=== PATIENT | female | born 1945 | race Caucasian/White ===

== ENCOUNTER 2017-05-31 08:09 | Day surgery (SDC) | payer MEDICARE ==
[2017-05-30 09:29] VITALS: BMI 19.1
[~2017-05-31 08:09] MED LIST: LACTATED RINGERS 1,000 ML IV SCH; LIDOCAINE 1% 20 ML VIAL (10MG/ML) FOR IV START INTRADERMA PRN
[2017-05-31 08:36] VITALS: TEMP 97
[2017-05-31] MEDS ORDERED: PROPOFOL 10 MG/ML 20 ML VIAL IV ONE (09:17)
[2017-05-31] MEDS ORDERED: LIDOCAINE 1% INJ 10MG/ML (20 ML MDV) ONE (09:17)
--- NOTE | 2017-05-31 09:40 | P.PCN ---
Date of Procedure: 05/31/17 Procedure(s) Performed: Brief history: Patient is a pleasant 72-year-old white female, scheduled for an elective upper endoscopy as well as colonoscopy as a part of evaluation of upper abdominal pain with abdominal bloating for the last few months duration. She also has family history of colon cancer diagnosed in her mother in her 60s. Her last colonoscopy was 5 years ago. Procedure performed: Esophagogastroduodenoscopy with biopsy Colonoscopy Preoperative diagnosis: Epigastric pain and abdominal bloating Screening for colon cancer/family history of colon cancer Anesthesia: MAC Procedure: After informed consent was obtained from the patient was brought into the endoscopy unit and IV sedation was administered by anesthesia under continuous monitoring. Initially upper endoscopy was done. The Olympus GF 160 video endoscope was inserted inserted into the mouth and esophagus intubated without any difficulty and was gradually advanced into the stomach and duodenum and carefully examined. The bulb and second part of the duodenum appeared normal. The scope was then withdrawn into the stomach adequately insufflated with air and upon careful examination the antrum had mild gastritis and biopsies were done from this area. The body, cardia and fundus appeared normal. The scope was then withdrawn into the esophagus. The GE junction was located at 40 cm to the incisors. It appeared regular with no erythema erosions or ulcerations. Rest of the esophagus appeared normal. Patient tolerated the procedure well. At this time the patient continued to remain sedation. Initial digital rectal examination was normal. Olympus CF 160 video colonoscope was then inserted into the rectum and gradually advanced to the cecum without any difficulty. Careful examination was performed as the scope was gradually being withdrawn. The prep was excellent. The cecum, ascending colon, transverse colon, descending colon, sigmoid colon and rectum appeared normal. Retroflexion was performed in the rectum and no lesions were noted. Patient tolerated the procedure well. Impression: 1. Upper endoscopy revealed mild antral gastritis but no evidence of esophagitis or peptic ulcer disease 2. Colonoscopy was within normal limits with no evidence of colitis or colorectal neoplasia. Recommendations: Findings of this examination were discussed with the patient as well as her family. She was advised to follow with the biopsy results. She can have a repeat screening colonoscopy in 5 years because of the family history of colon cancer.
[2017-05-31 09:46] VITALS: RESP 16
[2017-05-31 10:11] VITALS: BP 119/74; PULSE 59
== END 2017-05-31 10:20 | disposition home or self-care (01) ==
LOC: ORWHC2ENDO 08:09
PROVIDERS: ATTEND Internal Medicine Gastroenterology
DX: Z12.11 Encounter for screening for malignant neoplasm of colon (principal); K29.50 Unspecified chronic gastritis without bleeding; Z80.0 Family history of malignant neoplasm of digestive organs; E78.5 Hyperlipidemia, unspecified; E07.9 Disorder of thyroid, unspecified; K21.9 Gastro-esophageal reflux disease without esophagitis; Z79.82 Long term (current) use of aspirin; Z79.891 Long term (current) use of opiate analgesic; Z79.899 Other long term (current) drug therapy
CPT/HCPCS: 88305; 88342; 43239; J2001; J2704; G0105

== ENCOUNTER → 2017-09-05 | Outpatient (CLI) | payer MEDICARE ==
--- NOTE | 2017-09-05 15:12 | BD ---
EXAMINATION TYPE: MG DEXA axial skeleton. DATE OF EXAM: 09/05/2017 CLINICAL HISTORY: M89.9 Height: 66.5 Weight: 120.5 FRAX RISK QUESTIONS: Alcohol (3 or more units per day): no Family History (Parent hip fracture): yes, mother Glucocorticoids (More than 3mos): no (Ex: prednisone, prednisolone, methylprednisolone, dexamethasone, and hydrocortisone). History of Fracture in Adulthood: yes; both ankles different times Secondary Osteoporosis: 1. Type 1 Diabetes: no 2. Hyperthyroidism: no 3. Menopause before 45: yes, hysterectomy between age 40-45 4. Malnutrition: no 5. Chronic liver disease: no Rheumatoid Arthritis: no Current Tobacco Use: no RISK FACTORS HISTORY OF: Family History of Osteoporosis: yes Active: yes Diet low in dairy products/other sources of calcium: no Postmenopausal woman: yes Take estrogen and/or progesterone medications: Premarin cream now How long: previous use of hormones about 20 years Lost more than 2 inches in height since high school: no Frequent falls: no Poor Health: no Hyperparathyroidism: no Adrenal Insufficiency: no MEDICATIONS: Prednisone or other steroids: no Thyroid Medications: yes Which medication: Levothyroxine How Long: over 10 years at least Osteoporosis Medications: not now Which medication: Fosamax How Long: tried once-discontinued Additional Medications: propranolol for migraines, Fioricet, simvastatin, aspirin Fluticasone propionate nasal spray, Restasis, omeprazole, vitamin D vitamin b12, vitamin CoQ-10 Additional History: partial thyroidectomy 2000 EXAM MEASUREMENTS: Bone mineral densitometry was performed using the VB Rags System. Bone mineral density as measured about the Lumbar spine is: ----- L1-L4(G/cm2): 0.971 T Score Values are as follows: ----- L2: -2.4 ----- L3: -1.4 ----- L4: -1.3 ----- L1-L4: -1.7 Bone mineral density not previously done at this facility; history of BMD elsewhere Bone mineral density about the R hip (g/cm2): 0.774 Bone mineral density about the L hip (g/cm2): 0.793 T Score values are as follows: -----R Neck: -1.9 -----L Neck: -1.8 -----R Total: -2.1 -----L Total: -2.0 Bone mineral density not previously done at this facility; history of BMD elsewhere IMPRESSION: Osteopenia (T Score between -2.5 and -1). There is slightly increased risk of fracture and the patient may be considered for treatment. Re-Screen 2-5 years. NOTE: T-SCORE=SD OF THE YOUNG ADULT MEAN.
== END | disposition home or self-care (01) ==
LOC: RADBDWWP 13:04
PROVIDERS: ATTEND Family Medicine
DX: M85.80 Other specified disorders of bone density and structure, unspecified site (principal)
CPT/HCPCS: 77080

== ENCOUNTER → 2017-11-03 | Outpatient (CLI) | payer MEDICARE ==
[2017-11-03 07:30] LABS: Basophils % (A) 1 %; Eosinophils # (A) 0.2 k/uL (0-0.7); Eosinophils % (A) 3 %; HCT 41.8 % (34.0-46.0); HGB 14.6 gm/dL (11.4-16.0); Lymphocytes % (A) 20 %; MCH 31.1 pg (25.0-35.0); MCHC 34.9 g/dL (31.0-37.0); Mean Platelet Volume 8.9; Monocytes # (A) 0.3 k/uL (0-1.0); Monocytes % (A) 6 %; Neutrophils # (A) 3.6 k/uL (1.3-7.7); Neutrophils % (A) 69 %; Platelet Count 162 k/uL (150-450); RDW 13.3 % (11.5-15.5); WBC 5.2 k/uL (3.8-10.6)
[2017-11-03 07:55] LABS: ALT 25 U/L (9-52); AST 22 U/L (14-36); Albumin 4.3 g/dL (3.5-5.0); Alkaline Phosphatase 70 U/L (38-126); Anion Gap 12 mmol/L; Blood Urea Nitrogen 21 mg/dL (7-17); Calcium 9.1 mg/dL (8.4-10.2); Carbon Dioxide 28 mmol/L (22-30); Chloride 105 mmol/L (98-107); Cholesterol 146 mg/dL (<200); Glucose 90 mg/dL (74-99); HDL Cholesterol 66 mg/dL (40-60); LDL Cholesterol,Calculated 66 mg/dL (0-99); Potassium 4.2 mmol/L (3.5-5.1); Sodium 145 mmol/L (137-145); Total Protein 6.7 g/dL (6.3-8.2); Triglycerides 72 mg/dL (<150); Uric Acid 3.8 mg/dL (3.7-7.4)
[2017-11-03 08:07] LABS: T4, Free (Free Thyroxine) 1.33 ng/dL (0.78-2.19)
[2017-11-03 12:00] LABS: Vitamin D 25 Hydroxy 47.8 ng/mL (30.0-100.0)
[2017-11-03 16:44] LABS: Hemoglobin A1C 4.6 % (4.0-6.0)
== END | disposition home or self-care (01) ==
LOC: LABWHC1 07:14
PROVIDERS: ATTEND Family Medicine
DX: E78.5 Hyperlipidemia, unspecified (principal); E03.9 Hypothyroidism, unspecified; M35.09 Sjogren syndrome with other organ involvement; R73.01 Impaired fasting glucose
CPT/HCPCS: 36415; 80053; 80061; 82306; 82607; 83036; 84439; 84443; 84550; 85025

== ENCOUNTER → 2017-11-13 | Outpatient (CLI) | payer MEDICARE ==
--- NOTE | 2017-11-13 10:12 | US ---
EXAMINATION TYPE: US kidneys/renal and bladder DATE OF EXAM: 11/13/2017 COMPARISON: NONE CLINICAL HISTORY: Microscopic hematuria R31.29. Hematuria x 1 week with burning pain left side, then passed small stone per patient. EXAM MEASUREMENTS: Right Kidney: 10.2 x 5.3 x 4.6 cm Left Kidney: 11.1 x 6.4 x 5.3 cm Post Void Residual Volume: 13.6 mL Right Kidney: No hydronephrosis or masses seen Left Kidney: mid pole cyst = 3.6 x 3.7 x 3.0cm and probable smaller adjacent cyst = 2.0 x 1.8 x 1.5cm . No left-sided hydronephrosis. Bladder: wnl Bilateral Jets seen: Yes Normal Post Void Residual: Yes IMPRESSION: 1. No hydronephrosis or nephrolithiasis of either kidney. 2. Left midpole renal cyst and probable adjacent smaller 2.0 cm cyst.
== END | disposition home or self-care (01) ==
LOC: RADUSWWP 09:16
PROVIDERS: ATTEND Family Medicine
DX: N28.1 Cyst of kidney, acquired (principal)
CPT/HCPCS: 76770

== ENCOUNTER → 2019-01-07 | Outpatient (CLI) | payer MEDICARE ==
--- NOTE | 2019-01-08 09:26 | MM ---
Reason for exam: clinical finding. Left breast pain Last mammogram was performed 6 months ago. History: Patient is postmenopausal and history of other cancer. Took estrogen for 10 years beginning at age 43. Physical Findings: Nurse did not find any significant physical abnormalities on exam. MG 3D Diag Mammo W/Cad LT CC and MLO view(s) were taken of the left breast. Prior study comparison: July 10, 2018, bilateral MG screening mammo w CAD. No significant new finding when compared to prior study. ASSESSMENT: Benign, BI-RAD 2 RECOMMENDATION: Clinical management of the left breast.
--- NOTE | 2019-01-08 09:29 | USB ---
History: Patient is postmenopausal and history of other cancer. Took estrogen for 10 years beginning at age 43. US Breast LT Left complete breast ultrasound includes all four quadrants, the retroareolar region and axilla. Finding demonstrates dense tissue noted upper outer quadrant. ASSESSMENT: Benign, BI-RAD 2 RECOMMENDATION: Clinical management of the left breast. Routine screening mammogram of both breasts in 1 year.
== END | disposition home or self-care (01) ==
LOC: RADMAMWWP 09:08
PROVIDERS: ATTEND Family Medicine
DX: N64.4 Mastodynia (principal)
CPT/HCPCS: 77065; 76641; G0279; 77061

== ENCOUNTER 2019-01-14 06:15 | Day surgery (SDC) | payer MEDICARE ==
[2019-01-10 08:58] VITALS: BMI 19.3
[2019-01-14] MEDS ORDERED: ALPRAZolam 0.25 MG TAB PO PRN (06:31)
[2019-01-14] MEDS ORDERED: ATORVASTATIN 80 MG TAB PO STA (06:31)
[2019-01-14] MEDS ORDERED: NITROGLYCERIN SL TABS 0.4 MG TAB SUBLINGUAL PRN (06:31)
[2019-01-14] MEDS ORDERED: ALPRAZolam 0.5 MG TAB PO PRN (06:31)
[2019-01-14] MEDS ORDERED: SODIUM CHLORIDE 0.9% 1,000 ML in EMPTY BAG 1 BAG IV ONE (06:31)
[2019-01-14] MEDS ORDERED: ASPIRIN 325 MG TAB PO STA (06:31)
[2019-01-14] MEDS ORDERED: VERAPAMIL 2.5 MG/ML 2 ML AMP ONE (07:13)
[2019-01-14] MEDS ORDERED: LIDOCAINE 1% INJ 10MG/ML (20 ML MDV) ONE (07:13)
[2019-01-14 07:14] VITALS: TEMP 97.6
[2019-01-14 07:33] LABS: Basophils % (A) 1 %; Eosinophils # (A) 0.2 k/uL (0-0.7); Eosinophils % (A) 3 %; HCT 41.9 % (34.0-46.0); HGB 14.1 gm/dL (11.4-16.0); Lymphocytes # (A) 1.1 k/uL (1.0-4.8); Lymphocytes % (A) 22 %; MCH 29.7 pg (25.0-35.0); MCHC 33.7 g/dL (31.0-37.0); MCV 88.2 fL (80.0-100.0); Mean Platelet Volume 8.3; Monocytes # (A) 0.3 k/uL (0-1.0); Monocytes % (A) 6 %; Neutrophils # (A) 3.2 k/uL (1.3-7.7); Neutrophils % (A) 66 %; Platelet Count 167 k/uL (150-450); RBC 4.75 m/uL (3.80-5.40); RDW 13.1 % (11.5-15.5); WBC 4.9 k/uL (3.8-10.6)
[2019-01-14 07:42] LABS: African American GFR (CKD) >90 (>60 ml/min/1.73 sqM); Anion Gap 8 mmol/L; Blood Urea Nitrogen 14 mg/dL (7-17); Calcium 9.4 mg/dL (8.4-10.2); Carbon Dioxide 25 mmol/L (22-30); Chloride 107 mmol/L (98-107); Glucose 82 mg/dL (74-99); Potassium 4.2 mmol/L (3.5-5.1); Sodium 140 mmol/L (137-145)
[2019-01-14] MEDS ORDERED: MIDAZOLAM (PF) 2 MG/2 ML VIAL IV ONE (07:54)
[2019-01-14] MEDS ORDERED: LIDOCAINE 1% INJ 10MG/ML (10 ML MDV) SQ ONE (08:02)
[2019-01-14] MEDS ORDERED: HEPARIN SODIUM 1,000 UN/ML (10ML VL) ONE (08:03)
[2019-01-14] MEDS: VERAPAMIL SYRINGE (5 MG/10 ML) INTRAARTER ONE ×2 (08:03→08:13)
[2019-01-14] MEDS ORDERED: HEPARIN SODIUM 1,000 UN/ML (10ML VL) IV ONE (08:05)
[2019-01-14] MEDS ORDERED: IOPAMIDOL-370 125ML BTL INJ ONE (08:12)
[2019-01-14] MEDS ORDERED: RX INFO: IV CONTRAST WAS GIVEN 1 EACH MISC MISCELLANE PRN (08:22)
[2019-01-14] MEDS ORDERED: SODIUM CHLORIDE 0.9% 1,000 ML IV SCH (08:30)
[2019-01-14 08:37] VITALS: RESP 16
--- NOTE | 2019-01-14 08:42 | LTR ---
January 14, 2019 Re: Veronique Getz Dear Dr. Espinoza: Ms. Veronique Flores underwent today a heart catheterization and that revealed normal coronaries. I want to thank you for allowing me to participate in her care and please do not hesitate to call if you have any question or concern. Sincerely, MD PATRICIO Rae / LETTY: [phone] /
--- NOTE | 2019-01-14 08:51 | CC ---
CARDIAC CATHETERIZATION REPORT DATE OF SERVICE: January 14, 2019 PERFORMING PHYSICIAN: Prince Barney MD, marble worker. PROCEDURE PERFORMED: 1. Selective right and left coronary angiogram. 2. Left heart catheterization. INDICATION: This is a 73-year-old female patient with hypertension and dyslipidemia, was experiencing chest discomfort. The discomfort was suggestive of severe underlying coronary artery disease. Because of that, a heart catheterization was advised. APPROACH: Right radial artery. COMPLICATION: None. LEVEL OF SEDATION: Moderate with sedation length of 14 minutes. PROCEDURE DESCRIPTION: After obtaining an informed consent, the patient was brought to the cardiac tailings dam laborer. The right radial artery was cannulated using micropuncture technique, the micropuncture wire passed easily then I placed a 5-Uzbek sheath in the right radial artery. After that I did give the patient 2 mg of verapamil IA and 5000 units of heparin IV. Selective right and left coronary angiogram performed using JR3.5 and JL3 catheters. Left heart catheterization was performed using the JL3, which crossed the aortic valve then after pullback across the aortic valve. The procedure was completed without any complication. SELECTIVE CORONARY ANGIOGRAM: 1. The right coronary artery is a large caliber vessel. It is a dominant vessel and it appears to be angiographically normal. It distally bifurcates into PDA and PLV branches. They appear to be angiographically normal. 2. The left main is angiographically normal. It bifurcates into left circumflex and left anterior descending artery. 3. The left circumflex is a large caliber vessel. It is a nondominant vessel and appeared to be angiographically normal. 4. The LAD: The LAD appeared to be angiographically normal. It gives rise into the first and second diagonal branches. Both appeared to have mild disease in the ostium. The LAD itself and the proximal, mid and distal portion appeared to be angiographically normal. HEMODYNAMICS: The left ventricular end-diastolic pressure was 10 mmHg without significant gradient across the aortic valve. CONCLUSION: 1. Normal coronary angiogram. 2. Normal left ventricular end-diastolic pressure. POSTPROCEDURE MANAGEMENT: 1. Medical treatment. 2. Follow up with the patient. PATRICIO / LUIS MANUELN: [id number] /
[2019-01-14 12:49] VITALS: BP 111/62; PULSE 66
== END 2019-01-14 12:52 | disposition home or self-care (01) ==
LOC: CATHCVL 06:15
PROVIDERS: ATTEND Internal Medicine Interventional Cardiology
DX: R07.89 Other chest pain (principal); R94.39 Abnormal result of other cardiovascular function study; I10 Essential (primary) hypertension; E78.5 Hyperlipidemia, unspecified; Z82.49 Family history of ischemic heart disease and other diseases of the circulatory system; Z72.0 Tobacco use; Z79.82 Long term (current) use of aspirin; Z79.890 Hormone replacement therapy; Z88.5 Allergy status to narcotic agent
CPT/HCPCS: 93458; 80048; 85025; C1769 ×2; C1894; J1644; J2001; Q9967; J2250

== ENCOUNTER → 2019-02-12 | Outpatient (CLI) | payer MEDICARE ==
--- NOTE | 2019-02-12 14:58 | CT ---
EXAMINATION TYPE: CT chest w con DATE OF EXAM: 02/12/2019 COMPARISON: None HISTORY: 73-year-old female Left side chest pain x1 year TECHNIQUE: Contiguous axial scanning of the chest after the administration of 100 mL of Isovue 300. Coronal/sagittal reconstructions performed. CT DLP: 306mGycm. Automatic exposure control utilized for a dose reduction. FINDINGS: Heart normal size without pericardial effusion. Aorta normal caliber with a bovine configuration to the aortic arch. Left hilar nodule measures 1.3 x 0.6 cm, possible lymphoid tissue. Otherwise, no thoracic lymphadenop athy. No consolidation or pleural effusion. Irregular peripheral nodularity and groundglass measures up to 1.5 x 0.7 cm on axial image 45 and 6 m m on axial image 47 within the left lower lobe. Additional irregular and patchy nodularity right lower lobe measures up to 1.3 x 0.7 cm, axial image 33. Suggestion of some tree-in-bud opacities, axial image 45 within the left lower lobe. There may be add itional minimal tree-in-bud opacities basilar right middle lobe and to a lesser extent within the ant erior left midlung, axial image 29. Biapical pleural parenchymal scarring. A few 4 mm and smaller pulmonary nodules right upper lobe, for example, axial image 24 through 27. Visualized upper abdomen shows numerous hypodense hepatic lesions, largest measuring 1.2 cm, likely c ysts. Partially visualized large left renal lesion measuring 5.2 cm compatible with a cyst. Cholecyst ectomy clips. Bones: No osseous destructive process. IMPRESSION: 1. Irregular nodularity in the bilateral lower lobes, largest measuring 1.5 x 0.7 cm on the left and 1.3 x 0.7 cm on the right. Suggestion of subtle scattered tree-in-bud opacities and less than 4 mm no dularity right mid lung. Overall findings suggest an infectious/inflammatory etiology. Correlate for infectious bronchiolitis or atypical infections. 3 month follow-up after treatment recommended to aristides ssess and exclude the possibility of any underlying mass. 2. An additional 1.3 x 0.6 cm left hilar lymph node versus additional pulmonary nodularity should als o be reassessed at follow-up.
== END | disposition home or self-care (01) ==
LOC: RADCTMAIN 10:14
PROVIDERS: ATTEND Family Medicine
DX: R91.1 Solitary pulmonary nodule (principal); R09.1 Pleurisy
CPT/HCPCS: 82565; 84520; 71260; 36415; Q9967

== ENCOUNTER → 2019-04-09 | Outpatient (CLI) | payer MEDICARE | END | disposition home or self-care (01) | LOC: LABWHC1 10:59 | PROVIDERS: ATTEND Internal Medicine | DX: R04.2 Hemoptysis (principal) | CPT/HCPCS: 36415 ==

== ENCOUNTER → 2019-05-13 | Outpatient (CLI) | payer MEDICARE ==
--- NOTE | 2019-05-13 10:04 | CT ---
EXAMINATION TYPE: CT chest w con DATE OF EXAM: 05/13/2019 COMPARISON: 02/12/2019 HISTORY: follow up pulmonary nodule CT DLP: 117.8 mGycm. Automated Exposure Control for Dose Reduction was Utilized. TECHNIQUE: CT scan of the thorax is performed following with IV Contrast, patient injected with 100 mL of Isovue 300. FINDINGS: LUNGS: There is worsening of the nodular opacities in the right lower lobe seen on series 5 image 24 through 31 with the largest nodule on image 28 measuring 1.0 x 1.0 cm. However as described on the pr ior or multifocal tree-in-bud opacities, particularly on the left in the lower lobe on series 5 image 39. The more confluent nodules on the prior in this region have decreased in size. Tree-in-bud opaci ties are also seen in the right lower lobe posteriorly such as on image 35 and nodules of the right u pper lobe on image 24 and 25 are unchanged. Scattered areas of atelectasis are again noted. No new pl eural effusion or pneumothorax. Main tracheobronchial tree is patent. MEDIASTINUM: There are no greater than 1 cm hilar or mediastinal lymph nodes. Elongated left hilar ly mph node again is nonenlarged on image 29. No pericardial effusion is seen. Few coronary artery amie cifications. OTHER: Incidental 1.4 cm left hepatic lobe cyst and other scattered hepatic lesions that are hypoatte nuated but too small to accurately characterize, likely cysts. Large left renal cyst measures at leas t 5.1 cm. The liver displays mild hepatic steatosis. Minimal degenerative disc disease of the spine. IMPRESSION: Worsening right lower lobe nodular opacities although improved left lower lobe tree-in-bu d opacities and other multifocal persistent tree-in-bud opacities. Again morphology favors atypical i nfectious etiology such as mycobacterium avium intracellular, tuberculosis, or fungal etiology such a s aspergillosis although the differential is broad and can include connective tissue disorders such a s Sjogren system or rheumatoid arthritis, noninfectious bronchiolitis, or less likely neoplastic etio logies.
== END | disposition home or self-care (01) ==
LOC: RADCTMAIN 07:08
PROVIDERS: ATTEND Family Medicine
DX: R91.8 Other nonspecific abnormal finding of lung field (principal)
CPT/HCPCS: 82565; 84520; 71260; 36415; Q9967

== ENCOUNTER → 2019-08-19 | Outpatient (CLI) | payer MEDICARE ==
[2019-08-19 11:09] LABS: Basophils % (A) 1 %; Eosinophils # (A) 0.1 k/uL (0-0.7); Eosinophils % (A) 2 %; HGB 14.6 gm/dL (11.4-16.0); Lymphocytes % (A) 23 %; MCH 30.4 pg (25.0-35.0); MCHC 33.9 g/dL (31.0-37.0); MCV 89.7 fL (80.0-100.0); Mean Platelet Volume 10.1; Monocytes # (A) 0.3 k/uL (0-1.0); Monocytes % (A) 6 %; Neutrophils % (A) 67 %; Platelet Count 134 k/uL (150-450); RDW 13.2 % (11.5-15.5); WBC 4.4 k/uL (3.8-10.6)
[2019-08-19 16:19] LABS: African American GFR (CKD) 84.8 (60.0-200.0); Anion Gap 9.1 mmol/L (4.00-12.00); BUN/Creat Ratio 22.5 Ratio (12.00-20.00); Calcium 9.4 mg/dL (8.7-10.3); Carbon Dioxide 25.9 mmol/L (21.6-31.8); Non-African American GFR(CKD) 73.1 (60.0-200.0); Potassium 4.1 mmol/L (3.5-5.5)
[2019-08-19 16:33] LABS: Cyclic Citrull Pep IgG Unit <0.5 U/mL; Cyclic Citrullinated Pep IgG NEGATIVE (NEGATIVE); Scleroderma SC-70 Ab <0.2 AI
[2019-08-20 14:31] LABS: Alt. alternata IgE Class CLASS 0; Alternaria alternata IgE <0.10 kU/L (<0.10); Asperg. fumagatus IgE <0.10 kU/L (<0.10); Asperg. fumagatus IgE Class CLASS 0; Bermuda Grass IgE <0.10 kU/L (<0.10); Birch(Com.Silvr) IgE 0.11 kU/L (<0.10); Birch(Com.Silvr) IgE Class CLASS 0/1; Cat Epith & Dander IgE <0.10 kU/L (<0.10); Cat Epith & Dander IgE Class CLASS 0; Clad herbarum IgE <0.10 kU/L (<0.10); Clad herbarum IgE Class CLASS 0; Cockroach IgE <0.10 kU/L (<0.10); Cottonwood IgE <0.10 kU/L (<0.10); Dermato. Pteronyssinus Class CLASS 0; Dermato. Pteronyssinus IgE <0.10 kU/L (<0.10); Dermato. farinae IgE <0.10 kU/L (<0.10); Dermato. farinae IgE Class CLASS 0; Dog Dander IgE <0.10 kU/L (<0.10); Elm IgE <0.10 kU/L (<0.10); IgE (Allergen) 6.9 IU/mL (<114.0); Maple (Box Elder) IgE <0.10 kU/L (<0.10); Maple (Box Elder) IgE Class CLASS 0; Mountain Cedar IgE <0.10 kU/L (<0.10); Mountain Cedar IgE Class CLASS 0; Mouse Urine IgE Class CLASS 0; Mouse Urine Proteins,IgE <0.10 kU/L (<0.10); Nettle IgE <0.10 kU/L (<0.10); Nettle IgE Class CLASS 0; Oak IgE 0.28 kU/L (<0.10); Penicillium chrysogenum IgE <0.10 kU/L (<0.10); Penicillium chrysogenum IgE Cl CLASS 0; Rough Marshelder IgE <0.10 kU/L (<0.10); Rough Marshelder IgE Class CLASS 0; Timothy Grass IgE <0.10 kU/L (<0.10); Timothy Grass IgE Class CLASS 0; White Ash IgE Class CLASS 0
== END | disposition home or self-care (01) ==
LOC: LABWHC1 09:24
PROVIDERS: ATTEND Family Medicine
DX: M35.09 Sjogren syndrome with other organ involvement (principal); R06.02 Shortness of breath
CPT/HCPCS: 36415; 80048; 82785; 85025; 86001; 86003; 86038; 86200; 86235; 86606; 86609

== ENCOUNTER → 2020-02-28 | Outpatient (CLI) | payer MEDICARE ==
--- NOTE | 2020-03-02 11:59 | MM ---
Reason for exam: screening (asymptomatic). Last mammogram was performed 1 year and 2 months ago. History: Patient is postmenopausal and history of other cancer. Took estrogen for 10 years beginning at age 43. Physical Findings: A clinical breast exam by your physician is recommended on an annual basis and results should be correlated with mammographic findings. MG 3D Screening Mammo W/Cad Bilateral CC, MLO, and XCCL view(s) were taken. Prior study comparison: January 07, 2019, left breast MG 3d diag mammo w/cad LT. July 10, 2018, bilateral MG screening mammo w CAD. The breast tissue is heterogeneously dense. This may lower the sensitivity of mammography. No significant changes when compared with prior studies. ASSESSMENT: Benign, BI-RAD 2 RECOMMENDATION: Routine screening mammogram of both breasts in 1 year.
== END | disposition home or self-care (01) ==
LOC: RADMAMWWP 08:27
PROVIDERS: ATTEND Internal Medicine Geriatric Medicine
DX: Z12.31 Encounter for screening mammogram for malignant neoplasm of breast (principal)
CPT/HCPCS: 77063; 77067

== ENCOUNTER → 2020-12-29 | Outpatient (CLI) | payer MEDICARE ==
[2020-12-29 19:05] LABS: Basophils # (A) 0.03 X 10*3/uL (0.00-0.10); Basophils % (A) 0.6 %; Eosinophils # (A) 0.13 X 10*3/uL (0.04-0.35); Eosinophils % (A) 2.7 %; HCT 42.2 % (37.2-46.3); HGB 14.3 g/dL (12.0-15.0); Lymphocytes # (A) 1.29 X 10*3/uL (0.90-5.00); Lymphocytes % (A) 26.6 %; MCH 30.4 pg (27.0-32.0); MCHC 33.9 g/dL (32.0-37.0); MCV 89.6 fL (80.0-97.0); Mean Platelet Volume 11.8 fL (9.5-12.2); Monocytes # (A) 0.39 X 10*3/uL (0.20-1.00); Neutrophils % (A) 61.9 %; Platelet Count 151 X 10*3/uL (140-440); RBC 4.71 X 10*6/uL (4.10-5.20); RDW 12.5 % (11.5-14.5); WBC 4.85 X 10*3/uL (4.50-10.00)
[2020-12-29 21:53] LABS: Erythrocyte Sedimentation Rate 5 mm/Hr (0-30)
[2020-12-30 02:10] LABS: ALT 13 U/L (8-44); AST 23 U/L (13-35); African American GFR (CKD) 98.9 (60.0-200.0); Albumin/Globulin Ratio 2.04 (1.60-3.17); Alkaline Phosphatase 85 U/L (41-126); BUN/Creat Ratio 28.57 Ratio (12.00-20.00); C Reactive Protein <0.4 mg/dL (0.0-0.8); Calcium 9.2 mg/dL (8.7-10.3); Carbon Dioxide 23.6 mmol/L (21.6-31.8); Chloride 108 mmol/L (96-109); Cholesterol 159 mg/dL (0-200); Globulin 2.3 g/dL (1.6-3.3); Glucose 118 mg/dL (70-110); LDL Cholesterol,Calculated 77.8 mg/dL (0.0-131.0); Non-African American GFR(CKD) 85.4 (60.0-200.0); Potassium 4.1 mmol/L (3.5-5.5); Sodium 142 mmol/L (135-145); Total Bilirubin 1.4 mg/dL (0.3-1.2)
== END | disposition home or self-care (01) ==
LOC: LABWHC1 11:15
PROVIDERS: ATTEND Family Medicine
DX: E03.9 Hypothyroidism, unspecified (principal); A31.0 Pulmonary mycobacterial infection; E78.5 Hyperlipidemia, unspecified; E55.9 Vitamin D deficiency, unspecified; E53.8 Deficiency of other specified B group vitamins
CPT/HCPCS: 36415; 80053; 80061; 82306; 82607; 83970; 84145; 84439; 84443; 85025; 85652; 86140

== ENCOUNTER → 2021-03-23 | Outpatient (CLI) | payer MEDICARE ==
--- NOTE | 2021-03-24 09:14 | MM ---
Reason for exam: additional evaluation requested from prior study. Last mammogram was performed 1 year and 1 month ago. History: Patient is postmenopausal and history of other cancer. Took estrogen for 10 years beginning at age 43. Physical Findings: Nurse did not find any significant physical abnormalities on exam. MG 3D Diag Mammo W/Cad RENATA Bilateral CC, MLO, and XCCL view(s) were taken. Prior study comparison: February 28, 2020, bilateral MG 3d screening mammo w/cad. January 07, 2019, left breast MG 3d diag mammo w/cad LT. The breast tissue is heterogeneously dense. This may lower the sensitivity of mammography. There are benign appearing round calcifications bilaterally. There is no discrete abnormality. These results were verbally communicated with the patient and result sheet given to the patient on 03/23/21. ASSESSMENT: Benign, BI-RAD 2 RECOMMENDATION: Routine screening mammogram of both breasts in 1 year.
== END | disposition home or self-care (01) ==
LOC: RADMAMWWP 13:28
PROVIDERS: ATTEND Family Medicine
DX: R92.1 Mammographic calcification found on diagnostic imaging of breast (principal); Z78.0 Asymptomatic menopausal state
CPT/HCPCS: 77066; G0279; 77062

== ENCOUNTER → 2021-06-08 | Outpatient (CLI) | payer MEDICARE ==
[2021-06-08 18:46] LABS: Basophils # (A) 0.03 X 10*3/uL (0.00-0.10); Basophils % (A) 0.5 %; Eosinophils # (A) 0.15 X 10*3/uL (0.04-0.35); Eosinophils % (A) 2.7 %; HCT 42.4 % (37.2-46.3); HGB 14.1 g/dL (12.0-15.0); Lymphocytes # (A) 1.07 X 10*3/uL (0.90-5.00); Lymphocytes % (A) 19.2 %; MCH 29.9 pg (27.0-32.0); MCHC 33.3 g/dL (32.0-37.0); Mean Platelet Volume 11.2 fL (9.5-12.2); Monocytes % (A) 7.2 %; Neutrophils # (A) 3.91 X 10*3/uL (1.80-7.70); Neutrophils % (A) 70.2 %; Platelet Count 136 X 10*3/uL (140-440); RBC 4.71 X 10*6/uL (4.10-5.20); RDW 13.1 % (11.5-14.5); WBC 5.57 X 10*3/uL (4.50-10.00)
[2021-06-08 19:34] LABS: ALT 17 U/L (8-44); AST 26 U/L (13-35); African American GFR (CKD) 98.2 (60.0-200.0); Albumin 4.8 g/dL (3.8-4.9); Albumin/Globulin Ratio 2.29 (1.60-3.17); Alkaline Phosphatase 94 U/L (41-126); Blood Urea Nitrogen 16.1 mg/dL (9.0-27.0); Calcium 9.5 mg/dL (8.7-10.3); Carbon Dioxide 23.8 mmol/L (20.0-27.5); Chloride 106 mmol/L (96-109); Globulin 2.1 g/dL (1.6-3.3); Glucose 84 mg/dL (70-110); Non-African American GFR(CKD) 84.8 (60.0-200.0); Potassium 4.3 mmol/L (3.5-5.5); Sodium 142 mmol/L (135-145); Total Protein 6.9 g/dL (6.2-8.2)
[2021-06-08 19:49] LABS: Chol/HDL Ratio 2.51 Ratio
[2021-06-08 20:08] LABS: C Reactive Protein <0.30 mg/dL (0.00-0.80)
[2021-06-08 20:36] LABS: Erythrocyte Sedimentation Rate 6 mm/Hr (0-30)
== END | disposition home or self-care (01) ==
LOC: LABWHC1 12:22
PROVIDERS: ATTEND Family Medicine
DX: E78.5 Hyperlipidemia, unspecified (principal); E03.9 Hypothyroidism, unspecified; N64.4 Mastodynia; R91.1 Solitary pulmonary nodule; R73.01 Impaired fasting glucose; R78.5 Finding of other psychotropic drug in blood
CPT/HCPCS: 36415; 80053; 80061; 83036; 83721; 84439; 84443; 85025; 85652; 86140

== ENCOUNTER → 2021-06-28 | Outpatient (CLI) | payer MEDICARE ==
[2021-06-28 18:27] LABS: Basophils # (A) 0.02 X 10*3/uL (0.00-0.10); Basophils % (A) 0.4 %; Eosinophils # (A) 0.11 X 10*3/uL (0.04-0.35); Eosinophils % (A) 2.5 %; HCT 47.1 % (37.2-46.3); HGB 15.2 g/dL (12.0-15.0); Lymphocytes # (A) 1.06 X 10*3/uL (0.90-5.00); Lymphocytes % (A) 23.8 %; MCH 29.7 pg (27.0-32.0); MCHC 32.3 g/dL (32.0-37.0); MCV 92.2 fL (80.0-97.0); Mean Platelet Volume 11.3 fL (9.5-12.2); Monocytes # (A) 0.32 X 10*3/uL (0.20-1.00); Monocytes % (A) 7.2 %; Neutrophils # (A) 2.94 X 10*3/uL (1.80-7.70); Neutrophils % (A) 65.9 %; Platelet Count 174 X 10*3/uL (140-440); RBC 5.11 X 10*6/uL (4.10-5.20); RDW 12.9 % (11.5-14.5); WBC 4.46 X 10*3/uL (4.50-10.00)
[2021-06-29 09:49] LABS: Angiotensin-1 Converting Enz. 32 U/L (8-52)
[2021-06-29 13:23] LABS: C-ANCA <1:20 Titer (<1:20)
== END | disposition home or self-care (01) ==
LOC: LABWHC1 11:39
PROVIDERS: ATTEND Family Medicine
DX: J84.9 Interstitial pulmonary disease, unspecified (principal); E03.9 Hypothyroidism, unspecified
CPT/HCPCS: 36415; 82164; 82785; 85025; 86001; 86255; 86606; 86609

== ENCOUNTER 2022-01-18 19:56 | Observation (INO) | payer MEDICARE ==
--- NOTE | 2022-01-18 22:37 | ED ---
URI HPI - General Chief Complaint: Upper Respiratory Infection Stated Complaint: Coughing up Blood Time Seen by Provider: 01/18/22 22:37 Source: patient Mode of arrival: ambulatory Limitations: no limitations - Related Data Home Medications Medication Instructions Recorded Confirmed Aspirin 81 mg PO HS@1800 05/30/17 01/18/22 Atorvastatin [Lipitor] 20 mg PO HS@1800 05/30/17 01/18/22 Butalb/APAP/Caff 50-325-40Mg 1 tab PO Q4H PRN 05/30/17 01/18/22 [Fioricet 50-325-40] Cholecalciferol [Vitamin D3 (25 50 mcg PO DAILY@0630 05/30/17 01/18/22 Mcg = 1000 Iu)] Cyanocobalamin [Vitamin B-12] 500 mcg PO MOTH 05/30/17 01/18/22 Levothyroxine Sodium [Synthroid] 75 mcg PO DAILY@0630 05/30/17 01/18/22 Propranolol [Inderal] 5 mg PO BID@0630,1800 05/30/17 01/18/22 Propylene Glycol/Peg 400/Pf 1 drop BOTH EYES QID PRN 05/30/17 01/18/22 [Systane 0.3-0.4% Eye Drop] Triamcinolone 0.1% Cream [Kenalog 1 applic TOPICAL DAILY PRN 05/30/17 01/18/22 0.1% Cream] Ubidecarenone [Co Q-10] 200 mg PO DAILY@0630 05/30/17 01/18/22 cycloSPORINE [Restasis] 1 drop BOTH EYES BID 05/30/17 01/18/22 Latanoprost/Pf [Latanoprost 0.005% 1 drop BOTH EYES HS@1800 01/11/19 01/18/22 Eye Drop] Nystatin/Triamcin 1 applic TOPICAL BID 01/18/22 01/18/22 [Nystatin-Triamcinolone Cream] Omeprazole 20 mg PO AC-BRKFST PRN 01/18/22 01/18/22 Allergies Allergy/AdvReac Type Severity Reaction Status Date / Time No Known Allergies Allergy Verified 01/18/22 23:27 Review of Systems ROS Statement: Those systems with pertinent positive or pertinent negative responses have been documented in the HPI. ROS Other: All systems not noted in ROS Statement are negative. 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,thyroidectomy Past Anesthesia/Blood Transfusion Reactions: Postoperative Nausea & Vomiting (PONV) Additional Past Anesthesia/Blood Transfusion Reaction / Comment(s): TMJ- dislocated jaw when yawn after having molars removed Past Psychological History: No Psychological Hx Reported Smoking Status: Never smoker Past Alcohol Use History: Occasional - Past Family History Mother Family Medical History: No Reported History Daughter(s) Additional Family Medical History / Comment(s): granddaughter-Wilm's Tumor General Exam Limitations: no limitations Course Vital Signs 01/18/22 01/18/22 01/18/22 20:57 23:05 23:35 Temperature 98.1 F Pulse Rate 85 74 69 Respiratory 18 16 Rate Blood Pressure 153/83 136/90 O2 Sat by Pulse 96 96 Oximetry 01/19/22 00:06 Temperature Pulse Rate 68 Respiratory Rate Blood Pressure O2 Sat by Pulse Oximetry Medical Decision Making - Lab Data Result diagrams: 01/18/22 22:57 01/18/22 22:57 Lab Results 01/18/22 01/18/22 01/18/22 Range/Units 22:57 22:57 22:57 WBC 5.3 (3.8-10.6) k/uL RBC 4.99 (3.80-5.40) m/uL Hgb 15.2 (11.4-16.0) gm/dL Hct 44.5 (34.0-46.0) % MCV 89.1 (80.0-100.0) fL MCH 30.4 (25.0-35.0) pg MCHC 34.1 (31.0-37.0) g/dL RDW 12.9 (11.5-15.5) % Plt Count 154 (150-450) k/uL MPV 9.0 Neutrophils % 66 % Lymphocytes % 23 % Monocytes % 7 % Eosinophils % 3 % Basophils % 1 % Neutrophils # 3.5 (1.3-7.7) k/uL Lymphocytes # 1.2 (1.0-4.8) k/uL Monocytes # 0.4 (0-1.0) k/uL Eosinophils # 0.2 (0-0.7) k/uL Basophils # 0.0 (0-0.2) k/uL D-Dimer 0.28 (<0.60) mg/L FEU Sodium 138 (137-145) mmol/L Potassium 4.0 (3.5-5.1) mmol/L Chloride 104 (98-107) mmol/L Carbon Dioxide 21 L (22-30) mmol/L Anion Gap 13 mmol/L BUN 8 (7-17) mg/dL Creatinine 0.61 (0.52-1.04) mg/dL Est GFR (CKD-EPI)AfAm >90 (>60 ml/min/1.73 sqM) Est GFR (CKD-EPI)NonAf 89 (>60 ml/min/1.73 sqM) Glucose 92 (74-99) mg/dL Calcium 9.1 (8.4-10.2) mg/dL Disposition Clinical Impression: Hemoptysis Disposition: ADMITTED IP TO THIS [facility] Condition: Good Is patient prescribed a controlled substance at d/c from ED?: No Referrals: Phoebe Espinoza MD [Primary Care Provider] - 1-2 days
[2022-01-18] MEDS ORDERED: SODIUM CHLORIDE 0.9% 500 ML 500 ML IV STA (22:51)
[2022-01-18] MEDS ORDERED: TRANEXAMIC ACID 1,000 MG/10 ML VIAL INHALATION ONE (22:52)
[2022-01-18 23:08] LABS: Basophils % (A) 1 %; Eosinophils # (A) 0.2 k/uL (0-0.7); Eosinophils % (A) 3 %; HCT 44.5 % (34.0-46.0); HGB 15.2 gm/dL (11.4-16.0); Lymphocytes # (A) 1.2 k/uL (1.0-4.8); Lymphocytes % (A) 23 %; MCH 30.4 pg (25.0-35.0); MCHC 34.1 g/dL (31.0-37.0); MCV 89.1 fL (80.0-100.0); Monocytes # (A) 0.4 k/uL (0-1.0); Monocytes % (A) 7 %; Neutrophils # (A) 3.5 k/uL (1.3-7.7); Neutrophils % (A) 66 %; Platelet Count 154 k/uL (150-450); RBC 4.99 m/uL (3.80-5.40); RDW 12.9 % (11.5-15.5); WBC 5.3 k/uL (3.8-10.6)
[2022-01-18 23:17] LABS: African American GFR (CKD) >90 (>60 ml/min/1.73 sqM); Anion Gap 13 mmol/L; Blood Urea Nitrogen 8 mg/dL (7-17); Calcium 9.1 mg/dL (8.4-10.2); Carbon Dioxide 21 mmol/L (22-30); Chloride 104 mmol/L (98-107); Glucose 92 mg/dL (74-99); Non-African American GFR(CKD) 89 (>60 ml/min/1.73 sqM); Sodium 138 mmol/L (137-145)
--- NOTE | 2022-01-18 23:50 | CT ---
EXAMINATION TYPE: CT angio chest DATE OF EXAM: 01/18/2022 COMPARISON: 05/13/2019 HISTORY: hemoptysis CT DLP: 207 mGycm Automated exposure control for dose reduction was used. CONTRAST: Performed with IV Contrast, patient injected with 68ml mL of Isovue 370. There are Three-D postprocessed images. There is some mild reticular nodular infiltrate in the mid and lower lung talavera bilaterally. No pleu ral effusion. No pericardial effusion. Heart size is normal. There are no hilar masses. There is no mediastinal adenopathy. Thoracic aorta is intact. No aneurysm. There is no evidence of filling defect in the pulmonary arteries. The thoracic spine is intact. No compression fracture. Sternum is intact. No aortic dissection. Upper abdominal soft tissues are intact. There is a large cyst in the upper pole left kidney. There is 2 c m cyst in the left lobe of the liver. IMPRESSION: There is some patchy reticular nodular infiltrates in the lung talavera which are also present on old e xam and not significantly different. No suspicious pulmonary mass. No evidence of pulmonary embolism.
[2022-01-19] MEDS ORDERED: NALOXONE 0.4 MG/ML 1 ML VIAL IV PRN (00:18)
[2022-01-19] MEDS ORDERED: TRANEXAMIC ACID IN NACL,ISO-OS 1,000 MG in SALINE 1 100ML.BAG IVPB ONE (00:24)
[2022-01-19] MEDS ORDERED: TRANEXAMIC ACID 1,000 MG/10 ML VIAL INHALATION ONE (00:30)
[2022-01-19] MEDS: SODIUM CHLORIDE 0.9% 1,000 ML IV SCH ×3 (01:25→19:37)
[2022-01-19] MEDS: PANTOPRAZOLE 40 MG/10 ML VIAL IV SCH (08:18)
[2022-01-19] MEDS ORDERED: IPRATROPIUM-ALBUTEROL 3 ML NEB INHALATION PRN (10:31)
[2022-01-19] MEDS ORDERED: ARTIFICIAL TEARS-HYPROMELLOSE DROPS 15 ML BTL BOTH EYES PRN (10:37)
--- NOTE | 2022-01-19 11:41 | P.CNPUL ---
History of Present Illness Consult date: 01/19/22 Reason for consult: other (hemoptysis) History of present illness: This is a 76-year-old female patient is coming in for hemoptysis. The patient started having hemoptysis yesterday where she coughed out bright red blood without any significant mucus. No clots. She was having small chunks of blood coughed out without any major difficulties and is not associated with any significant shortness of breath or chest pain or pleurisy. 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 The patient states that her original diagnosis was in 2008 at [facility] and at that time the patient had some abnormal CAT scan of the chest with bilateral pulmonary infiltrates and bronchoscopy was done and the cultures shirt turner to be positive for MAC infection. At that time, the patient was treated with a combination of rifampin, and family to a Zithromax. She was able to tolerated treatment for a total of several months and subsequently she had a lot of side effects and she had to stop the treatment. 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 No treatment was offered to the patient was being followed up regularly with serial CAT scans of the chest. Attended the CAT scan findings were essentially unchanged. On few instances, the patient had hemoptysis with subsequently subsided. No epistaxis. No fever. No chills no weight loss. No other constitutional symptoms for now. No chest pain. No trauma to her chest. No DVTs or pulmonary embolism.A repeat CAT scan of the chest was done on 01/18/2022 and this was compared to the earlier CAT scan from 05/13/2019. There was some mild reticulonodular infiltrates in the mid and lower lung is bilaterally. No pleural effusion. No pericardial effusion. Normal ascending lymphadenopathy. There is some limited this illness with calcification. There was also some limited bronchiectasis in the right upper lobe area. As such, there is no major interval change or progression of the patient's mycobacterial infection the patient is currently on no treatment. She is on room air oxygen. She has no other specific complaints today to takes aspirin as the patient has a remote history of TIA. No history of any stroke. No history of immunosuppression. No chronic steroids and antibiotic use. Review of Systems Constitutional: Reports fatigue, Reports weakness Eyes: denies as per HPI, denies blurred vision, denies bulging eye, denies decreased vision, denies diplopia, denies discharge, denies dry eye, denies irritation, denies itching, denies pain, denies photophobia, denies loss of peripheral vision, denies loss of vision, denies tunnel vision/blind spots Ears: deny: decreased hearing, ear discharge, earache, tinnitus Ears, nose, mouth and throat: Reports as per HPI Breasts: absent: as per HPI, change in shape, gynecomastia, masses, nipple discharge, pain, skin changes, swelling Cardiovascular: Reports as per HPI Respiratory: Reports hemoptysis Gastrointestinal: Reports as per HPI Genitourinary: Reports as per HPI Menstruation: Reports as per HPI Musculoskeletal: Reports as per HPI Musculoskeletal: absent: ankle pain, ankle stiffness, ankle swelling Integumentary: Reports as per HPI Neurological: Reports as per HPI Psychiatric: Reports as per HPI Endocrine: Reports as per HPI Hematologic/Lymphatic: Reports as per HPI Allergic/Immunologic: Reports as per HPI Past Medical History Past Medical History: Cancer, GERD/Reflux, Hyperlipidemia, Sleep Apnea/CPAP/BIPAP, Thyroid Disorder Additional Past Medical History / Comment(s): tightness across stomach and bloating Hx migraines,mycrobacterium avium intercellular lung infection 2008- Wendy Warner MD Zithromax, ethambutol and rifampin x7 months, FU bronch in 2019 MAC and Mycobacterium abscesses ,ASHLEY and she is on cpap,stress incontinence, skin CA, PFO History of Any Multi-Drug Resistant Organisms: None Reported Past Surgical History: Cholecystectomy, Heart Catheterization Additional Past Surgical History / Comment(s): bronchoscopy,EGD,colonoscopy,Moh's procedure,rt rot cuff,benign bone tumor removed lt arm with bone graft from left hip,thyroidectomy for goiter Past Anesthesia/Blood Transfusion Reactions: Postoperative Nausea & Vomiting (PONV) Additional Past Anesthesia/Blood Transfusion Reaction / Comment(s): TMJ- dislocated jaw when yawn after having molars removed Past Psychological History: No Psychological Hx Reported Smoking Status: Never smoker Past Alcohol Use History: Occasional - Past Family History Mother Family Medical History: No Reported History Daughter(s) Additional Family Medical History / Comment(s): granddaughter-Wilm's Tumor Medications and Allergies Home Medications Medication Instructions Recorded Confirmed Type Aspirin 81 mg PO HS@1800 05/30/17 01/18/22 History Atorvastatin [Lipitor] 20 mg PO HS@1800 05/30/17 01/18/22 History Butalb/APAP/Caff 50-325-40Mg 1 tab PO Q4H PRN 05/30/17 01/18/22 History [Fioricet 50-325-40] Cholecalciferol [Vitamin D3 (25 50 mcg PO DAILY@0630 05/30/17 01/18/22 History Mcg = 1000 Iu)] Cyanocobalamin [Vitamin B-12] 500 mcg PO MOTH 05/30/17 01/18/22 History Levothyroxine Sodium [Synthroid] 75 mcg PO DAILY@0630 05/30/17 01/18/22 History Propranolol [Inderal] 5 mg PO BID@0630,1800 05/30/17 01/18/22 History Propylene Glycol/Peg 400/Pf 1 drop BOTH EYES QID PRN 05/30/17 01/18/22 History [Systane 0.3-0.4% Eye Drop] Triamcinolone 0.1% Cream [Kenalog 1 applic TOPICAL DAILY PRN 05/30/17 01/18/22 History 0.1% Cream] Ubidecarenone [Co Q-10] 200 mg PO DAILY@0630 05/30/17 01/18/22 History cycloSPORINE [Restasis] 1 drop BOTH EYES BID 05/30/17 01/18/22 History Latanoprost/Pf [Latanoprost 0.005% 1 drop BOTH EYES HS@1800 01/11/19 01/18/22 History Eye Drop] Nystatin/Triamcin 1 applic TOPICAL BID 01/18/22 01/18/22 History [Nystatin-Triamcinolone Cream] Omeprazole 20 mg PO AC-BRKFST PRN 01/18/22 01/18/22 History Allergies Allergy/AdvReac Type Severity Reaction Status Date / Time No Known Allergies Allergy Verified 01/18/22 23:27 Physical Exam Vitals: Vital Signs Temp Pulse Pulse Resp BP BP Pulse Ox 01/19/22 07:00 97.8 F 72 18 140/74 98 01/19/22 05:22 60 16 114/71 98 01/19/22 03:40 67 16 100/61 98 01/19/22 01:25 80 01/19/22 01:00 67 18 140/86 97 01/19/22 00:56 74 01/19/22 00:06 68 01/18/22 23:35 69 01/18/22 23:05 74 16 136/90 96 01/18/22 20:57 98.1 F 85 18 153/83 96 Intake and Output 01/18/22 01/19/22 01/19/22 22:59 06:59 14:59 Other: Weight 54.885 kg Gen. appearance the patient is calm and comfortable likely distress The patient appeared well nourished and normally developed. Vital signs as documented. Head exam is unremarkable. No scleral icterus or corneal arcus noted. Neck is without jugular venous distension, thyromegaly, or carotid bruits. Carotid upstrokes are brisk bilaterally. Lungs are clear to auscultation and percussion. Cardiac exam reveals the PMI to be normally sized and situated. Rhythm is regular. First and second heart sounds normal. No murmurs, rubs or gallops. Abdominal exam reveals normal bowel sounds, no masses, no organomegaly and no aortic enlargement. Extremities are nonedematous and both femoral and pedal pulses are normal. Examination of the skin revealed no evidence of significant rashes, suspicious appearing nevi or other concerning lesions. Neurologically, the patient is awake and alert and the patient does not have any focal neurological deficit. Cranial nerves are essentially intact. Results - Laboratory Findings CBC and BMP: 01/18/22 22:57 01/18/22 22:57 PT/INR, D-dimer D-Dimer 0.28 mg/L FEU (<0.60) 01/18/22 22:57 Abnormal lab findings: Abnormal Labs 01/18/22 22:57 Carbon Dioxide 21 L - Diagnostic Findings Chest x-ray: image reviewed CT scan - chest: image reviewed Assessment and Plan Plan: Hemoptysis, likely secondary to underlying chronic bronchiectasis History of mycobacterial lung infection diagnosed originally in 2008 treated with triple antibiotics with a combination of his albuterol rifampin and Zithromax. The treatment was continued for a total of several months and since then the patient did not have any further treatment. She has been monitored by serial CAT scan of the chest and the most recent bronchoscopy revealing a combination of MAC and Mycobacterium abscesses. Obstructive sleep apnea, utilizing CPAP therapy Previous history of skin cancer Previous history of partial thyroidectomy. Benign thyroid nodule, no evidence of any malignancy Hyperlipidemia Acid reflux PFO followed up with Dr. Steiner Plan Discussed findings with the patient This is most likely a self-limiting hemoptysis. No evidence of any superinfection with bacteria this point in time. The CAT scan findings are essentially unchanged and they're stable with some limited vague reticular nodular pulmonary infiltrates. Patient wanted to establish her care with us here in the [place] area. I suggested repeating the bronchoscopy and obtaining the bronchioloalveolar lavage to reevaluate the microbiology and decide if any treatment is needed in the future. Monitor for immediate treatment at this point in time. The bronchoscopy should be able also to assess the extent and the origin of the hemoptysis. For that reason, the patient is hospitalized and she will be scheduled to undergo bronchoscopy for a bronchial lavage and airway inspection a.m. and possibly get discharged the next 24 hours. I will suggest holding aspirin for now.
[2022-01-19] MEDS: IPRATROPIUM-ALBUTEROL 3 ML NEB INHALATION SCH ×3 (11:44→19:39)
[2022-01-19] MEDS: LEVOTHYROXINE 75 MCG TAB PO SCH (12:30)
[2022-01-19 12:49] LABS: Partial Thromboplastin Time 23.1 sec (22.0-30.0); Prothrombin Time 10.8 sec (9.0-12.0)
[2022-01-19] MEDS: PROPRANOLOL 10 MG TAB PO SCH (17:43)
[2022-01-19] MEDS: ATORVASTATIN 20 MG TAB PO SCH (17:43)
[2022-01-19] MEDS: LATANOPROST 0.005% OPHTH DROPS 2.5 ML BTL BOTH EYES SCH (19:37)
[2022-01-19] MEDS: HEPARIN SODIUM,PORCINE/PF 5,000 UNIT/0.5 ML SYRINGE SQ SCH (19:38)
[2022-01-19] MEDS: cycloSPORINE 0.05% OPHTH 0.4 ML DROPERETTE BOTH EYES SCH (19:38)
--- NOTE | 2022-01-20 01:20 | P.HPIM ---
History of Present Illness H&P Date: 01/19/22 Chief Complaint: Blood in the sputum Patient is a 76-year-old female with a known history of obstructive sleep apnea on CPAP, skin cancer, hypothyroidism, GERD and history of Mycobacterium AViM infection presents to ER with complaints of bright red blood in the sputum. Patient has been having coughing up clots since yesterday. Denies any complaints of worsening shortness of breath. No chest pain or pleurisy. Patient was diagnosed with Mycobacterium infection in [address] scan of the chest and status post bronchoscopy and cultures turned out to be positive for MAC infection. Patient was treated and is being monitored. She had another bronchoscopy in 2019 and no further treatment was recommended at that time. Patient rarely complains of fever or chills. No nausea vomiting or abdominal pain or diarrhea. No hematemesis or melena. CT angio of the chest showed there is some patchy reticular nodular infiltrates in the lung talavera which are also present on old exam and not significantly different. No suspicious pulmonary mass. No evidence of pulmonary embolism. Laboratory test showed Is a 5.3 hemoglobin 10.9 platelets 134 D-dimer is 0.28 Sodium 138 potassium 4.0 chloride 104 bicarb is 21 BUN 8 and creatinine 0.64 and calcium 9.1. Review of Systems Constitutional: Patient denies any fever or chills . no Generalized weakness. Abdomen: Patient denied any nausea or vomiting or abd. pain Cardiovascular: Patient denies any chest pain or short of breath no palpitations. Respiratory: patient denied any cough is from production. No shortness of breath, blood in the sputum. Neurologic: Patient denied any numbness or tingling headache. Musculoskeletal: Patient denies any complaints of joint swelling or deformity. Skin: Negative Psychiatric: Negative Endocrine: No heat or cold intolerance. No recent weight gain. Genitourinary: No dysuria or hematuria. All other 14 point ROS negative except the above Past Medical History Past Medical History: Cancer, GERD/Reflux, Hyperlipidemia, Sleep Apnea/CPAP/BIPAP, Thyroid Disorder Additional Past Medical History / Comment(s): tightness across stomach and bloating Hx migraines,mycrobacterium avium intercellular lung infection 2008- Wendy Warner MD Zithromax, ethambutol and rifampin x7 months, FU bronch in 2019 MAC and Mycobacterium abscesses ,ASHLEY and she is on cpap,stress incontinence, skin CA, PFO History of Any Multi-Drug Resistant Organisms: None Reported Past Surgical History: Cholecystectomy, Heart Catheterization Additional Past Surgical History / Comment(s): bronchoscopy,EGD,colonoscopy,Moh's procedure,rt rot cuff,benign bone tumor removed lt arm with bone graft from left hip,thyroidectomy for goiter Past Anesthesia/Blood Transfusion Reactions: Postoperative Nausea & Vomiting (PONV) Additional Past Anesthesia/Blood Transfusion Reaction / Comment(s): TMJ-di slocated jaw when yawn after having molars removed Past Psychological History: No Psychological Hx Reported Smoking Status: Never smoker Past Alcohol Use History: Occasional - Past Family History Mother Family Medical History: No Reported History Daughter(s) Additional Family Medical History / Comment(s): granddaughter-Wilm's Tumor Father Family Medical History: Vascular Disorder Additional Family Medical History / Comment(s): Aneurysm Medications and Allergies Home Medications Medication Instructions Recorded Confirmed Type Aspirin 81 mg PO HS@1800 05/30/17 01/18/22 History Atorvastatin [Lipitor] 20 mg PO HS@1800 05/30/17 01/18/22 History Butalb/APAP/Caff 50-325-40Mg 1 tab PO Q4H PRN 05/30/17 01/18/22 History [Fioricet 50-325-40] Cholecalciferol [Vitamin D3 (25 50 mcg PO DAILY@0630 05/30/17 01/18/22 History Mcg = 1000 Iu)] Cyanocobalamin [Vitamin B-12] 500 mcg PO MOTH 05/30/17 01/18/22 History Levothyroxine Sodium [Synthroid] 75 mcg PO DAILY@0630 05/30/17 01/18/22 History Propranolol [Inderal] 5 mg PO BID@0630,1800 05/30/17 01/18/22 History Propylene Glycol/Peg 400/Pf 1 drop BOTH EYES QID PRN 05/30/17 01/18/22 History [Systane 0.3-0.4% Eye Drop] Triamcinolone 0.1% Cream [Kenalog 1 applic TOPICAL DAILY PRN 05/30/17 01/18/22 History 0.1% Cream] Ubidecarenone [Co Q-10] 200 mg PO DAILY@0630 05/30/17 01/18/22 History cycloSPORINE [Restasis] 1 drop BOTH EYES BID 05/30/17 01/18/22 History Latanoprost/Pf [Latanoprost 0.005% 1 drop BOTH EYES HS@1800 01/11/19 01/18/22 History Eye Drop] Nystatin/Triamcin 1 applic TOPICAL BID 01/18/22 01/18/22 History [Nystatin-Triamcinolone Cream] Omeprazole 20 mg PO AC-BRKFST PRN 01/18/22 01/18/22 History Allergies Allergy/AdvReac Type Severity Reaction Status Date / Time No Known Allergies Allergy Verified 01/18/22 23:27 Physical Exam Vitals: Vital Signs Temp Pulse Pulse Resp BP BP Pulse Ox 01/19/22 07:00 97.8 F 72 18 140/74 98 01/19/22 05:22 60 16 114/71 98 01/19/22 03:40 67 16 100/61 98 01/19/22 01:25 80 01/19/22 01:00 67 18 140/86 97 01/19/22 00:56 74 01/19/22 00:06 68 01/18/22 23:35 69 01/18/22 23:05 74 16 136/90 96 01/18/22 20:57 98.1 F 85 18 153/83 96 Intake and Output 01/18/22 01/19/22 01/19/22 22:59 06:59 14:59 Other: Weight 54.885 kg PHYSICAL EXAMINATION: Patient is lying in the bed comfortably, no acute distress, awake alert and oriented.. HEENT: Normocephalic. Neck is supple. Pupils reactive. Nostrils clear. Oral cavity is moist. Neck reveals no JVD, carotid bruits, or thyromegaly. CHEST EXAMINATION: Trachea is central. Symmetrical expansion. Lung talavera clear to auscultation and percussion. CARDIAC: Normal S1, S2 with no gallops. No murmurs ABDOMEN: Soft. Bowel sounds present. Nontender. No organomegaly. No abdominal bruits. Extremities: reveal no edema. No clubbing or cyanosis Neurologically awake, alert, oriented x3 with well-coordinated movements. No focal deficits noted Skin: No rash or skin lesions. Psychiatric: Coperative. Nonsuicidal, anxious. Musculoskeletal: No joint swelling or deformity. Normal range of motion. Results CBC & Chem 7: 01/18/22 22:57 01/18/22 22:57 Labs: Abnormal Lab Results - Last 24 Hours (Table) 01/18/22 Range/Units 22:57 Carbon Dioxide 21 L (22-30) mmol/L Thrombosis Risk Factor Assmnt - DVT/VTE Prophylaxis DVT/VTE Prophylaxis: Mechanical Prophylaxis ordered Assessment and Plan Assessment: Hemoptysis due to underlying chronic bronchiectasis History of atypical Mycobacterium infection diagnosed in 2008 status posttreatment with rifampin, ethambutol and Zithromax. She is on follow-up and monitoring with serial CAT scan. Obstructive sleep apnea on CPAP at home History of skin cancer History of goiter status post partial thyroidectomy. Arm thyroid supplementation Hyperlipidemia GERD PFO on follow-up with cardiology as an outpatient Plan: Patient will be continued on IV hydration. Monitor H&H. No evidence of active bleeding at this time. Pulmonary is planning for bronchoscopy and follow-up BAL culture reports. Aspirin is on hold. Continue with home medications and follow-up closely. Time with Patient: Greater than 30
[2022-01-20] MEDS: LEVOTHYROXINE 75 MCG TAB PO SCH (05:38)
[2022-01-20] MEDS: PROPRANOLOL 10 MG TAB PO SCH ×2 (05:43→17:11)
[2022-01-20] MEDS: IPRATROPIUM-ALBUTEROL 3 ML NEB INHALATION SCH ×4 (07:54→20:30)
[2022-01-20] MEDS ORDERED: CYANOCOBALAMIN 500 MCG TAB PO SCH (09:00)
[2022-01-20 09:02] LABS: Basophils # (A) 0.02 X 10*3/uL (0.00-0.10); Basophils % (A) 0.4 %; Eosinophils # (A) 0.13 X 10*3/uL (0.04-0.35); Eosinophils % (A) 2.3 %; HCT 37.5 % (37.2-46.3); HGB 12.7 g/dL (12.0-15.0); Immature Grans, Automated 0.4 %; Lymphocytes # (A) 1.01 X 10*3/uL (0.90-5.00); Lymphocytes % (A) 18.2 %; MCH 30.5 pg (27.0-32.0); MCHC 33.9 g/dL (32.0-37.0); MCV 89.9 fL (80.0-97.0); Mean Platelet Volume 11.7 fL (9.5-12.2); Monocytes # (A) 0.36 X 10*3/uL (0.20-1.00); Monocytes % (A) 6.5 %; NRBC Per 100 WBC 0 /100 WBCS (0.0-0.0); Neutrophils % (A) 72.2 %; Platelet Count 144 X 10*3/uL (140-440); RBC 4.17 X 10*6/uL (4.10-5.20); WBC 5.54 X 10*3/uL (4.50-10.00)
[2022-01-20 09:19] LABS: African American GFR (CKD) 98.2 (60.0-200.0); Albumin/Globulin Ratio 2.35 (1.60-3.17); Anion Gap 8.2 mmol/L (10.00-18.00); BUN/Creat Ratio 12.43 Ratio (12.00-20.00); Blood Urea Nitrogen 8.7 mg/dL (9.0-27.0); Calcium 8.8 mg/dL (8.7-10.3); Carbon Dioxide 26.8 mmol/L (20.0-27.5); Globulin 1.7 g/dL (1.6-3.3); Non-African American GFR(CKD) 84.8 (60.0-200.0); Potassium 4.4 mmol/L (3.5-5.5); Total Bilirubin 0.6 mg/dL (0.30-1.20); Total Protein 5.7 g/dL (6.2-8.2)
[2022-01-20] MEDS: PANTOPRAZOLE 40 MG/10 ML VIAL IV SCH (10:32)
[2022-01-20] MEDS: cycloSPORINE 0.05% OPHTH 0.4 ML DROPERETTE BOTH EYES SCH ×2 (10:33→21:07)
[2022-01-20] MEDS: SODIUM CHLORIDE 0.9% 1,000 ML IV SCH ×2 (10:33→21:09)
[2022-01-20] MEDS: HEPARIN SODIUM,PORCINE/PF 5,000 UNIT/0.5 ML SYRINGE SQ SCH ×2 (10:33→21:06)
[2022-01-20] MEDS ORDERED: MIDAZOLAM 2 MG/2 ML VIAL ONE (11:32)
[2022-01-20] MEDS ORDERED: PROPOFOL 10 MG/ML 20 ML VIAL IV ONE (11:32)
[2022-01-20] MEDS ORDERED: LIDOCAINE 2% INJ 20 MG/ML (2 ML VIAL) ONE (11:32)
[2022-01-20] MEDS ORDERED: fentaNYL (PF) 50 MCG/ML 2 ML AMP ONE (11:32)
[2022-01-20] MEDS ORDERED: ONDANSETRON 4 MG/2 ML VIAL ONE (11:32)
[2022-01-20] MEDS ORDERED: SODIUM CHLORIDE 0.9% 500 ML 500 ML IV ONE (11:33)
[2022-01-20 12:04] VITALS: BMI 19.5
[2022-01-20] MEDS: AZITHROMYCIN 500 MG TAB PO SCH (13:32)
--- NOTE | 2022-01-20 14:18 | P.PN ---
Subjective Progress Note Date: 01/20/22 Principal diagnosis: Hemoptysis This is a 76-year-old female patient is coming in for hemoptysis. The patient started having hemoptysis yesterday where she coughed out bright red blood without any significant mucus. No clots. She was having small chunks of blood coughed out without any major difficulties and is not associated with any significant shortness of breath or chest pain or pleurisy. 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 The patient states that her original diagnosis was in 2008 at [facility] and at that time the patient had some abnormal CAT scan of the chest with bilateral pulmonary infiltrates and bronchoscopy was done and the cultures fitter and turner to be positive for MAC infection. At that time, the patient was treated with a combination of rifampin, and family to a Zithromax. She was able to tolerated treatment for a total of several months and subsequently she had a lot of side effects and she had to stop the treatment. 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 No treatment was offered to the patient was being followed up regularly with serial CAT scans of the chest. Attended the CAT scan findings were essentially unchanged. On few instances, the patient had hemoptysis with subsequently subsided. No epistaxis. No fever. No chills no weight loss. No other constitutional symptoms for now. No chest pain. No trauma to her chest. No DVTs or pulmonary embolism.A repeat CAT scan of the chest was done on 01/18/2022 and this was compared to the earlier CAT scan from 05/13/2019. There was some mild reticulonodular infiltrates in the mid and lower lung is bilaterally. No pleural effusion. No pericardial effusion. Normal ascending lymphadenopathy. There is some limited this illness with calcification. There was also some limited bronchiectasis in the right upper lobe area. As such, there is no major interval change or progression of the patient's mycobacterial infection the patient is currently on no treatment. She is on room air oxygen. She has no other specific complaints today to takes aspirin as the patient has a remote history of TIA. No history of any stroke. No history of immunosuppression. No chronic steroids and antibiotic use. on 01/20/2022 patient seen in follow-up on medical surgical floor, still having some limited hemoptysis, but no signs of any respiratory distress, room air pulse ox is 95%, afebrile, hemodynamically she is stable, no acute events overnight. No complaints of chest discomfort. Patient has been nothing by mouth for bronchoscopy with bronchoalveolar lavage and airway exam. Objective - Vital Signs Vital signs: Vital Signs Temp 98.3 F 01/20/22 13:25 Pulse 74 01/20/22 13:25 Resp 16 01/20/22 13:25 BP 118/67 01/20/22 13:25 Pulse Ox 95 01/20/22 13:25 FiO2 Intake & Output 01/19/22 01/20/22 01/20/22 18:59 06:59 18:59 Intake Total 300 Balance 300 Weight 54.885 kg 54.885 kg Intake: IV 300 Other: Voiding Method Toilet Toilet # Voids 1 1 - Exam GENERAL EXAM: Alert, very pleasant, 76-year-old female, resting comfortably in bed, with room air pulse ox of 95% comfortable in no apparent distress. HEAD: Normocephalic/atraumatic. EYES: Normal reaction of pupils, equal size. Conjunctiva pink, sclera white. NOSE: Clear with pink turbinates. THROAT: No erythema or exudates. NECK: No masses, no JVD, no thyroid enlargement, no adenopathy. CHEST: No chest wall deformity. Symmetrical expansion. LUNGS: Equal air entry with no crackles, wheeze, rhonchi or dullness. CVS: Regular rate and rhythm, normal S1 and S2, no gallops, no murmurs, no rubs ABDOMEN: Soft, nontender. No hepatosplenomegaly, normal bowel sounds, no guarding or rigidity. EXTREMITIES: No clubbing, no edema, no cyanosis, 2+ pulses and upper and lower extremities. MUSCULOSKELETAL: Muscle strength and tone normal. SPINE: No scoliosis or deformity SKIN: No rashes CENTRAL NERVOUS SYSTEM: Alert and oriented -3. No focal deficits, tone is normal in all 4 extremities. PSYCHIATRIC: Alert and oriented -3. Appropriate affect. Intact judgment and insight. - Labs CBC & Chem 7: 01/20/22 05:05 01/20/22 05:05 Labs: Abnormal Lab Results - Last 24 Hours (Table) 08/11/22 Range/Units 05:05 Anion Gap 8.20 L (10.00-18.00) mmol/L BUN 8.7 L (9.0-27.0) mg/dL Total Protein 5.7 L (6.2-8.2) g/dL Assessment and Plan Plan: Assessment: Hemoptysis, likely secondary to underlying chronic bronchiectasis History of mycobacterial lung infection diagnosed originally in 2008 treated with triple antibiotics with a combination of his albuterol rifampin and Zithromax. The treatment was continued for a total of several months and since then the patient did not have any further treatment. She has been monitored by serial CAT scan of the chest and the most recent bronchoscopy revealing a combination of MAC and Mycobacterium abscesses. Obstructive sleep apnea, utilizing CPAP therapy Previous history of skin cancer Previous history of partial thyroidectomy. Benign thyroid nodule, no evidence of any malignancy Hyperlipidemia Acid reflux PFO followed up with Dr. Steiner plan: Patient tolerated bronchoscopy with BAL She will be kept overnight for monitoring for worsening hemoptysis We'll start azithromycin and Rocephin BAL cultures have been sent If patient is stable and hemoptysis is not worsening patient will likely be considered for discharge home in the next 24 hours with outpatient follow-up I have personally seen and examined the patient, performed the documentation and the assessment and plan as written. Number of minutes spent on the visit: [15] I have personally seen and examined the patient and reviewed the documentation. I performed a joint evaluation with the nurse practitioner in this evaluation was done more than 20 minutes. I fully agree with the documentation above and the plan of care. Bronchoscopy done today, bleeding is from the superior segment of the right lower lobe which is currently inactive. We'll follow. Stop aspirin. Time with Patient: Less than 30
--- NOTE | 2022-01-20 16:15 | P.PCN ---
Date of Procedure: 01/20/22 Preoperative Diagnosis: Hemoptysis Postoperative Diagnosis: Hemoptysis, blood originating from severe segment of the right lower lobe, no active bleeding Procedure(s) Performed: Flexible bronchoscopy, bronchioloalveolar lavage of the right middle lobe Surgeon: Jin Lane Estimated Blood Loss (ml): 10 Pathology: other Condition: stable Disposition: floor Operative Findings: This patient is known to have history of atypical mycobacterial infection. The patient was having episodes of hemoptysis. The procedure was done for airway inspection and at the same time obtain a bronchioloalveolar lavage to establish microbiology, cultures and sensitivities regarding atypical mycobacterial infection.. This procedure was done under conscious sedation. The patient was given propofol for sedation by anesthesia the bedside. After achieving adequate sedation, the flexible bronchoscope was introduced the right nostril and was less of the upper airway. His initial posterior pharynx, larynx, epiglottis, arytenoids, vocal cords were all within normal limits. There was no evidence of any blood in the upper airway. Vocal cord function and mobility was within normal limits. He applied a total of 2 mL of 1% lidocaine to the vocal cords and following that I introduced the bronchoscope into the upper airway. Examination the trachea was normal. There was some loose old blood retainer trachea, sitting on the membranous wall of the trachea and this was suctioned out. I will inspection was completed. Examination of left side including the left main stem bronchus, and DUANE LB1-LB3 were seen and no endobronchial lesions were seen then the scope advanced to the lingula and the LB4 and LB5 were seen and no endobronchial lesions were seen the scope retracted and advanced to the left lower lobes LB6 to LB12 were seen one by one and no endobronchial lesions, then the scope was retracted back to the elisabeth and advanced to the main stem bronchus on the right and is within normal limits. Right upper lobe bronchus was patent within normal limits. There was active bright red blood occupying the orifice of the superior segment of the right lower lobe. There was also bloody secretions retained in the radius and right lower lobe including the anterior lateral and posterior segments. All retained blood count was also seen in the distal bronchus intermedius and the foot is suctioned out. Right mainstem bronchus was within normal limits. I believe that the source of the and this appears segment of the right lower lobe. I this point, bronchoscope was moved to the right middle lobe and the bronchioloalveolar lavage was done. A total of 80 L of fluid was infused and 25-30 mL was suctioned back without any major difficulties. Following that, the bronchoscope was introduced into the right lower lobe. I intended to visualize the airway to make sure there is no endobronchial tumors or lesions contributing to this hemoptysis or bleeding. Saline was infused in the superior segment of the right lower lobe. No endobronchial abnormalities were noted. Following that, there was some bleeding encountered which stopped spontaneously and total amount of this was around 8-10 mL. Therapeutic airway suctioning with him. Bronchoscope was removed. Aspirin will be discontinued and the patient will be monitored very closely on the medical floor. If the bleeding recurs, the patient is to be considered for bronchial artery embolization. We'll continue to follow. Keep the patient off aspirin for now. The bronchial alveolar lavage will be sent for microbial culture.
[2022-01-20] MEDS: LATANOPROST 0.005% OPHTH DROPS 2.5 ML BTL BOTH EYES SCH (17:11)
[2022-01-20] MEDS: ATORVASTATIN 20 MG TAB PO SCH (17:12)
--- NOTE | 2022-01-20 20:36 | P.PN ---
Subjective Progress Note Date: 01/20/22 Patient is a 76-year-old female with a known history of obstructive sleep apnea on CPAP, skin cancer, hypothyroidism, GERD and history of Mycobacterium AViM infection presents to ER with complaints of bright red blood in the sputum. Patient has been having coughing up clots since yesterday. Denies any complaints of worsening shortness of breath. No chest pain or pleurisy. Patient was diagnosed with Mycobacterium infection in [address] scan of the chest and status post bronchoscopy and cultures turned out to be positive for MAC infection. Patient was treated and is being monitored. She had another bronchoscopy in 2019 and no further treatment was recommended at that time. Patient rarely complains of fever or chills. No nausea vomiting or abdominal pain or diarrhea. No hematemesis or melena. CT angio of the chest showed there is some patchy reticular nodular infiltrates in the lung talavera which are also present on old exam and not significantly different. No suspicious pulmonary mass. No evidence of pulmonary embolism. Laboratory test showed Is a 5.3 hemoglobin 10.9 platelets 134 D-dimer is 0.28 Sodium 138 potassium 4.0 chloride 104 bicarb is 21 BUN 8 and creatinine 0.64 and calcium 9.1. 01/20/2022 Patient is seen in follow up currently awaiting transport to undergo bronchoscopy with BAL with pulmonary today. Patient reports to having one more episode on hemoptysis and reports it has now resolved. Hemoglobin is stable at 12/7 although is down from 15.2 on admission. Patient is afebrile and denies chest pain or shortness of breath. Patient denies nausea or vomiting and currently NPO for the procedure. Review of systems: Constitutional: Patient denies any fever or chills . no Generalized weakness. Abdomen: Patient denied any nausea or vomiting or abd. pain Cardiovascular: Patient denies any chest pain or short of breath no palpitations. Respiratory: patient denied any cough or phlegm production. No shortness of breath, patient reports some blood in the sputum this am, but reports resolved. Neurologic: Patient denied any numbness or tingling headache. PHYSICAL EXAMINATION: Patient is sitting up in the bed comfortably, no acute distress, awake alert and oriented.. HEENT: Normocephalic. Neck is supple. Pupils reactive. Nostrils clear. Oral cavity is moist. Neck reveals no JVD, carotid bruits, or thyromegaly. CHEST EXAMINATION: Trachea is central. Symmetrical expansion. Lung talavera clear to auscultation and percussion. CARDIAC: Normal S1, S2 with no gallops. No murmurs ABDOMEN: Soft. Bowel sounds present. Nontender. No organomegaly. No abdominal bruits. Extremities: reveal no edema. No clubbing or cyanosis Neurologically awake, alert, oriented x3 with well-coordinated movements. No focal deficits noted Skin: No rash or skin lesions. Psychiatric: Cooperative. Non-suicidal, less anxious. Musculoskeletal: No joint swelling or deformity. Normal range of motion. Assessment: Hemoptysis due to underlying chronic bronchiectasis History of atypical Mycobacterium infection diagnosed in 2009 status post- treatment with rifampin, ethambutol and Zithromax. She is on follow-up and monitoring with serial CAT scan. s/p bronchoscopy Obstructive sleep apnea on CPAP at home History of skin cancer History of goiter status post partial thyroidectomy. [place] thyroid supplementation Hyperlipidemia GERD PFO on follow-up with cardiology as an outpatient Full code Plan: Patient is post bronchoscopy with pulmonary today and lavage. Recommend closely monitoring overnight for any worsening of hemoptysis Pulmonary started patient on Zith and ceftriaxone and will continue for now Recommend repeat labs to monitor hemoglobin Aspirin currently on hold. Prognosis is guarded Possible discharge in 24 hours once cleared by pulmonary The impression and plan of care has been dictated by Ana Nowak, Nurse Practitioner as directed. Dr. Ophelia MD I have performed a history and examination and MDM of this patient, discussed the same with the dictator, and agree with the dictator's assessment and plan as written ,documented as a scribe. Based on total visit time, I have performed more than 50% of the visit. Objective - Vital Signs Vital signs: Vital Signs Temp 98.5 F 01/20/22 07:00 Pulse 60 01/20/22 08:05 Resp 12 01/20/22 07:00 BP 143/80 01/20/22 07:00 Pulse Ox 97 01/20/22 07:00 FiO2 Intake & Output 01/19/22 01/20/22 01/20/22 18:59 06:59 18:59 Weight 54.885 kg Other: Voiding Method Toilet # Voids 1 1 - Labs CBC & Chem 7: 01/20/22 05:05 01/20/22 05:05 Labs: Abnormal Lab Results - Last 24 Hours (Table) 01/20/22 Range/Units 05:05 Anion Gap 8.20 L (10.00-18.00) mmol/L BUN 8.7 L (9.0-27.0) mg/dL Total Protein 5.7 L (6.2-8.2) g/dL
[2022-01-20] MEDS: FLUTICASONE 50MCG/SPRAY NASAL 16GM EA NOSTRIL SCH (21:06)
[2022-01-21] MEDS: LEVOTHYROXINE 75 MCG TAB PO SCH (06:22)
[2022-01-21] MEDS: PROPRANOLOL 10 MG TAB PO SCH (06:22)
[2022-01-21] MEDS: IPRATROPIUM-ALBUTEROL 3 ML NEB INHALATION SCH ×2 (07:20→10:51)
[2022-01-21 07:21] VITALS: RESP 16
[2022-01-21 07:52] LABS: Basophils % (A) 0 %; Eosinophils # (A) 0.1 k/uL (0-0.7); Eosinophils % (A) 1 %; HCT 38.2 % (34.0-46.0); Lymphocytes # (A) 0.6 k/uL (1.0-4.8); Lymphocytes % (A) 10 %; MCH 30.7 pg (25.0-35.0); MCV 90.2 fL (80.0-100.0); Mean Platelet Volume 9.8; Monocytes # (A) 0.2 k/uL (0-1.0); Monocytes % (A) 4 %; Neutrophils # (A) 4.8 k/uL (1.3-7.7); Neutrophils % (A) 84 %; Platelet Count 135 k/uL (150-450); RBC 4.23 m/uL (3.80-5.40); RDW 12.9 % (11.5-15.5); WBC 5.7 k/uL (3.8-10.6)
[2022-01-21 08:08] VITALS: BP 116/72; TEMP 98
[2022-01-21] MEDS: PANTOPRAZOLE 40 MG/10 ML VIAL IV SCH (08:14)
[2022-01-21] MEDS: FLUTICASONE 50MCG/SPRAY NASAL 16GM EA NOSTRIL SCH (08:14)
[2022-01-21] MEDS: AZITHROMYCIN 500 MG TAB PO SCH (08:14)
[2022-01-21] MEDS: HEPARIN SODIUM,PORCINE/PF 5,000 UNIT/0.5 ML SYRINGE SQ SCH (08:14)
[2022-01-21] MEDS: cycloSPORINE 0.05% OPHTH 0.4 ML DROPERETTE BOTH EYES SCH (08:15)
[2022-01-21 11:02] VITALS: PULSE 84
[2022-01-21] MEDS: SODIUM CHLORIDE 0.9% 1,000 ML IV SCH (13:37)
--- NOTE | 2022-01-21 14:03 | P.PN ---
Subjective Progress Note Date: 01/21/22 Principal diagnosis: Hemoptysis This is a 76-year-old female patient is coming in for hemoptysis. The patient started having hemoptysis yesterday where she coughed out bright red blood without any significant mucus. No clots. She was having small chunks of blood coughed out without any major difficulties and is not associated with any significant shortness of breath or chest pain or pleurisy. 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 The patient states that her original diagnosis was in 2008 at [facility] and at that time the patient had some abnormal CAT scan of the chest with bilateral pulmonary infiltrates and bronchoscopy was done and the cultures insole lip turner to be positive for MAC infection. At that time, the patient was treated with a combination of rifampin, and family to a Zithromax. She was able to tolerated treatment for a total of several months and subsequently she had a lot of side effects and she had to stop the treatment. 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 No treatment was offered to the patient was being followed up regularly with serial CAT scans of the chest. Attended the CAT scan findings were essentially unchanged. On few instances, the patient had hemoptysis with subsequently subsided. No epistaxis. No fever. No chills no weight loss. No other constitutional symptoms for now. No chest pain. No trauma to her chest. No DVTs or pulmonary embolism.A repeat CAT scan of the chest was done on 01/18/2022 and this was compared to the earlier CAT scan from 05/13/2019. There was some mild reticulonodular infiltrates in the mid and lower lung is bilaterally. No pleural effusion. No pericardial effusion. Normal ascending lymphadenopathy. There is some limited this illness with calcification. There was also some limited bronchiectasis in the right upper lobe area. As such, there is no major interval change or progression of the patient's mycobacterial infection the patient is currently on no treatment. She is on room air oxygen. She has no other specific complaints today to takes aspirin as the patient has a remote history of TIA. No history of any stroke. No history of immunosuppression. No chronic steroids and antibiotic use. on 01/20/2022 patient seen in follow-up on medical surgical floor, still having some limited hemoptysis, but no signs of any respiratory distress, room air pulse ox is 95%, afebrile, hemodynamically she is stable, no acute events overnight. No complaints of chest discomfort. Patient has been nothing by mouth for bronchoscopy with bronchoalveolar lavage and airway exam. The patient is seen today thousand 20 to follow-up on the regular medical floor. She is currently sitting up in bed. Awake and alert in no acute distress. She's only had one episode of a small amount of dark blood last evening. No further hemoptysis since her bronchoscopy. cultures are pending. No fever chills. Maintaining good O2 saturations in the mid 90s on room air. Afebrile. Hemodynamically stable. Objective - Vital Signs Vital signs: Vital Signs Temp 98 F 01/21/22 07:00 Pulse 84 01/21/22 11:02 Resp 16 01/21/22 11:02 BP 116/72 01/21/22 07:00 Pulse Ox 96 01/21/22 07:00 FiO2 Intake & Output 01/20/22 01/21/22 01/21/22 18:59 06:59 18:59 Intake Total 418 Balance 418 Weight 54.885 kg 54.885 kg Intake: IV 300 Oral 118 Other: Voiding Method Toilet Toilet # Voids 3 1 - Exam GENERAL EXAM: Alert, active, very pleasant 76-year-old female, on room air, comfortable in no apparent distress. HEAD: Normocephalic. EYES: Normal reaction of pupils, equal size. NOSE: Clear with pink turbinates. THROAT: No erythema or exudates. NECK: No masses, no JVD. CHEST: No chest wall deformity. LUNGS: Equal air entry with no crackles, wheeze, rhonchi or dullness. CVS: S1 and S2 normal with no audible murmur, regular rhythm. ABDOMEN: No hepatosplenomegaly, normal bowel sounds, no guarding or rigidity. SPINE: No scoliosis or deformity SKIN: No rashes CENTRAL NERVOUS SYSTEM: No focal deficits, tone is normal in all 4 extremities. EXTREMITIES: There is no peripheral edema. No clubbing, no cyanosis. Peripheral pulses are intact. - Labs CBC & Chem 7: 01/21/22 07:31 01/20/22 05:05 Labs: Abnormal Lab Results - Last 24 Hours (Table) 01/21/22 Range/Units 07:31 Plt Count 135 L (150-450) k/uL Lymphocytes # 0.6 L (1.0-4.8) k/uL Microbiology - Last 24 Hours (Table) 01/20/22 11:45 Gram Stain - Preliminary Bronchoalviolar Lavage - Right Bronchial Washings Culture - Preliminary 01/20/22 11:45 Fungal Culture - Preliminary Bronchoalviolar Lavage - Right 01/20/22 11:45 Acid Fast Bacilli Culture - Preliminary Bronchoalviolar Lavage - Right Assessment and Plan Assessment: Hemoptysis, likely secondary to underlying chronic bronchiectasis. She did undergo bronchoscopy with BAL, cultures pending. Bleeding was noted on the right lower lobe. History of mycobacterial lung infection diagnosed originally in 2008 treated with triple antibiotics with a combination of his albuterol rifampin and Zithromax. The treatment was continued for a total of several months and since then the patient did not have any further treatment. She has been monitored by serial CAT scan of the chest and the most recent bronchoscopy revealing a combination of MAC and Mycobacterium abscesses. Obstructive sleep apnea, utilizing CPAP therapy Previous history of skin cancer Previous history of partial thyroidectomy. Benign thyroid nodule, no evidence of any malignancy Hyperlipidemia Acid reflux PFO followed up with Dr. Steiner Plan: The patient was seen and evaluated She is cleared for discharge Complete a 5 day course of Levaquin Encouraged to return to the hospital she should cough up approximately 1 cup of bright red blood If recurrent hemoptysis may need embolization and transfer to tertiary care Otherwise, she'll follow-up in our office in 1 week I have personally seen and examined the patient, performed the documentation and the assessment and plan as written. Number of minutes spent on the visit: 10. I have personally seen and examined the patient and reviewed the documentation. I performed a joint evaluation with the nurse practitioner in this evaluation was done more than 20 minutes. I fully agree with the documentation above and the plan of care. No active bleeding for now. The patient is not having any hemoptysis and the patient is not having hemoptysis overnight. The patient will be discharged home on a course of Levaquin to be followed up on outpatient basis. If hemoptysis recurs, the patient will need a bronchial artery embolization and I have asked her to come back to the hospital make the appropriate referrals in this regard. The bronchioloalveolar lavage will be checked on outpatient basis.
--- NOTE | 2022-01-23 12:06 | P.DS ---
Providers Date of admission: 01/19/22 00:19 Expected date of discharge: 01/21/22 Attending physician: Chelly Marks Consults: 01/19/22 00:18 Consult Physician Routine Consulting Provider: Jin Lane Consult Reason/Comments: hemoptysis Do you want consulting provider notified?: Yes Primary care physician: Phoebe Espinoza [place] [facility] Course: Final Diagnosis Hemoptysis due to underlying chronic bronchiectasis History of atypical Mycobacterium infection diagnosed in 2008 status post- treatment with rifampin, ethambutol and Zithromax. She is on follow-up and monitoring with serial CAT scan. s/p bronchoscopy Obstructive sleep apnea on CPAP at home History of skin cancer History of goiter status post partial thyroidectomy. [place] thyroid supplementation Hyperlipidemia GERD PFO on follow-up with cardiology as an outpatient Full code Discharge disposition Patient is being discharged in a stable condition with guarded prognosis to home. Patient will follow-up with in the outpatient setting upon discharge. Patient is to follow up with pulmonary as scheduled. Patient continued on oral Levaquin daily for 5 days on discharge. Total time taken is greater than 35 minutes. Hospital course This is a 76-year-old female who was recently admitted with hemoptysis and cough. Patient follows with pulmonary outpatient and been having increasing hemoptysis and underwent bronchoscopy with BAL and had specimens collected for analysis. Patient with one scant episode of hemoptysis on day of discharge with hemoglobin that is stable of 13 and has been cleared by pulmonary for discharge. Patient to continue on empiric Levaquin 500mg daily for five days and will follow with pulm on culture reports. Currently no reports of chest pain, shortness of breath, or palpitations. Patient is afebrile. No reports of nausea or vomiting and patient is tolerating diet. Patient will be discharged home today. Physical exam: Gen: This is a 76 year old female who is awake and alert and oriented x3. HEENT: Head is atraumatic, normocephalic. Pupils equal, round. Sclerae is anicteric. NECK: Supple. No JVD. No lymphadenopathy. No thyromegaly. LUNGS: Clear to auscultation. No wheezes or rhonchi. No intercostal retractions. HEART: Regular rate and rhythm. No murmur. ABDOMEN: Soft. Bowel sounds are present. No masses. No tenderness. EXTREMITIES: No pedal edema. No calf tenderness. NEUROLOGICAL: Patient is awake, alert and oriented x3. Cranial nerves 2 through 12 are grossly intact. Please refer to medication reconciliation sheet for a list of medications. The impression and plan of care has been dictated by Ana Nowak, Nurse Practitioner as directed. Dr. Ophelia MD I have performed a history and examination and MDM of this patient, discussed the same with the dictator, and agree with the dictator's assessment and plan as written ,documented as a scribe. Based on total visit time, I have performed more than 50% of the visit. Patient Condition at Discharge: Good Plan - Discharge Summary Discharge Rx Participant: No New Discharge Prescriptions: New Fluticasone Nasal [place] [Flonase Nasal [place]] 2 spray EA NOSTRIL BID ml Levofloxacin [Levaquin] 500 mg PO DAILY 5 Days #5 tab Continue Cyanocobalamin [Vitamin B-12] 500 mcg PO MOTH Cholecalciferol [Vitamin D3 (25 Mcg = 1000 Iu)] 50 mcg PO DAILY@0630 Triamcinolone 0.1% Cream [Kenalog 0.1% Cream] 1 applic TOPICAL DAILY PRN PRN Reason: Rash Propylene Glycol/Peg 400/Pf [Systane 0.3-0.4% Eye Drop] 1 drop BOTH EYES QID PRN PRN Reason: Dry Eye(S) cycloSPORINE [Restasis] 1 drop BOTH EYES BID Levothyroxine Sodium [Synthroid] 75 mcg PO DAILY@0630 Butalb/APAP/Caff 50-325-40Mg [Fioricet 50-325-40] 1 tab PO Q4H PRN PRN Reason: migraines Atorvastatin [Lipitor] 20 mg PO HS@1800 Aspirin 81 mg PO HS@1800 Propranolol [Inderal] 5 mg PO BID@0630,1800 Ubidecarenone [Co Q-10] 200 mg PO DAILY@0630 Latanoprost/Pf [Latanoprost 0.005% Eye Drop] 1 drop BOTH EYES HS@1800 Omeprazole 20 mg PO AC-BRKFST PRN PRN Reason: gerd Nystatin/Triamcin [Nystatin-Triamcinolone Cream] 1 applic TOPICAL BID Discharge Medication List Aspirin 81 mg PO HS@1800 05/30/17 [History] Atorvastatin [Lipitor] 20 mg PO HS@1800 05/30/17 [History] Butalb/APAP/Caff 50-325-40Mg [Fioricet 50-325-40] 1 tab PO Q4H PRN 05/30/17 [History] Cholecalciferol [Vitamin D3 (25 Mcg = 1000 Iu)] 50 mcg PO DAILY@0630 05/30/17 [History] Cyanocobalamin [Vitamin B-12] 500 mcg PO MOTH 05/30/17 [History] Levothyroxine Sodium [Synthroid] 75 mcg PO DAILY@62905/30/17 [History] Propranolol [Inderal] 5 mg PO BID@06,1800 05/30/17 [History] Propylene Glycol/Peg 400/Pf [Systane 0.3-0.4% Eye Drop] 1 drop BOTH EYES QID PRN 05/30/17 [History] Triamcinolone 0.1% Cream [Kenalog 0.1% Cream] 1 applic TOPICAL DAILY PRN 05/30/17 [History] Ubidecarenone [Co Q-10] 200 mg PO DAILY@62905/30/17 [History] cycloSPORINE [Restasis] 1 drop BOTH EYES BID 05/30/17 [History] Latanoprost/Pf [Latanoprost 0.005% Eye Drop] 1 drop BOTH EYES HS@1800 01/11/19 [History] Nystatin/Triamcin [Nystatin-Triamcinolone Cream] 1 applic TOPICAL BID 01/18/22 [History] Omeprazole 20 mg PO AC-BRKFST PRN 01/18/22 [History] Fluticasone Nasal [place] [Flonase Nasal [place]] 2 spray EA NOSTRIL BID ml 01/21/22 [Rx] Levofloxacin [Levaquin] 500 mg PO DAILY 5 Days #5 tab 01/21/22 [Rx] Follow up Appointment(s)/Referral(s): Phoebe Espinoza MD [Primary Care Provider] - 1-[address] MD [STAFF PHYSICIAN] - 02/02/22 10:45 am Patient Instructions/Handouts: Coughing Up Blood (Hemoptysis) (GEN) Activity/Diet/Wound Care/Special Instructions: Activity Limited until follow-up Follow-up with primary care provider on discharge Follow-up with pulmonary as discussed Continue antibiotics until finished Report to the ER if developing any worsening bleeding Stop aspirin!! if bleeding gets worse or if you cough up a cup of blood please come back to hospital Any problems please see Dr. Lane sooner!! Please call and make fu appointment with your pcp Discharge Disposition: HOME SELF-CARE
== END 2022-01-21 13:57 | disposition home or self-care (01) ==
LOC: EC 19:56 → 6NMEDSUR 01-19 00:19
PROVIDERS: ADMIT Hospitalist; ATTEND Hospitalist
DX: J47.9 Bronchiectasis, uncomplicated (principal); R04.2 Hemoptysis; K21.9 Gastro-esophageal reflux disease without esophagitis; E78.5 Hyperlipidemia, unspecified; G47.30 Sleep apnea, unspecified; E89.0 Postprocedural hypothyroidism; G47.33 Obstructive sleep apnea (adult) (pediatric); Q21.1 Atrial septal defect; Z79.82 Long term (current) use of aspirin; Z79.899 Other long term (current) drug therapy; Z79.890 Hormone replacement therapy; Z90.49 Acquired absence of other specified parts of digestive tract; Z85.828 Personal history of other malignant neoplasm of skin; Z86.73 Personal history of transient ischemic attack (TIA), and cerebral infarction without residual deficits; Z83.2 Family history of diseases of the blood and blood-forming organs and certain disorders involving the immune mechanism
CPT/HCPCS: 96376 ×2; 96365; 96366; 96372 ×3; 96361; 96375; 99285; 36415; 94640 ×6; 87798 ×3; 87496; 87498; 87529; 85379; 88108; 88305; 80053; 80048; 85025 ×3; 85610; 85730; 88312; 87252; 87502; 87634; 87070; 87205; 87116; 87102; 87206; 71275; 31624; G0378 ×3; J2250; J2405; J0696 ×2; J3010; J2704; C9113 ×3; Q9967; J1644 ×3; J2001

== ENCOUNTER → 2022-02-02 | Outpatient (CLI) | payer MEDICARE ==
[2022-02-02 20:45] LABS: Immunoglobulin E 5.32 IU/mL (0.00-114.00)
[2022-02-03 06:56] LABS: IgG Subclass 1 574.8 mg/dL (382.40-928.60); IgG Subclass 2 240.1 mg/dL (241.80-700.30); IgG Subclass 3 26.8 mg/dL (21.82-176.00); IgG Subclass 4 6.1 mg/dL (3.92-86.40)
== END | disposition home or self-care (01) ==
LOC: LABWHC1 12:16
PROVIDERS: ATTEND Internal Medicine Critical Care Medicine
DX: B44.1 Other pulmonary aspergillosis (principal)
CPT/HCPCS: 36415; 82785; 82787; 85652

== ENCOUNTER → 2022-05-16 | Outpatient (CLI) | payer MEDICARE ==
--- NOTE | 2022-05-17 11:11 | MM ---
Reason for Exam: Screening (asymptomatic). Last mammogram was performed 1 year(s) and 2 month(s) ago. Patient History: Menarche at age 14. First Full-Term at age 25. Left ovary removed at age 43. Right ovary removed at age 43. Hysterectomy at age 43. Other cancer, age 71. Estrogen for 10 years from age 43 until age 53. Risk Values: Sasha 5 year model risk: 1.6%. NCI Lifetime model risk: 3.2%. Prior Study Comparison: 01/07/2019 Left Diagnostic Mammogram, [facility]. 02/28/2020 Bilateral Screening Mammogram, [facility]. 03/23/2021 Bilateral Diagnostic Mammogram, [facility]. Tissue Density: The breast tissue is extremely dense which could obscure a lesion on mammography. Findings: Analyzed By CAD. There is no suspicious group of microcalcifications or new suspicious mass in either breast. Benign-appearing round calcifications bilaterally. No significant change from prior exams. Overall Assessment: Benign, BI-RAD 2 Management: Screening Mammogram of both breasts in 1 year. A clinical breast exam by your physician is recommended on an annual basis and results should be correlated with mammographic findings. Electronically signed and approved by: Bridger Davidson D.O.
== END | disposition home or self-care (01) ==
LOC: RADMAMWWP 11:00
PROVIDERS: ATTEND Family Medicine
DX: Z12.31 Encounter for screening mammogram for malignant neoplasm of breast (principal)
CPT/HCPCS: 77063; 77067

== ENCOUNTER → 2022-09-06 | Outpatient (CLI) | payer MEDICARE ==
[2022-09-06 18:12] LABS: HCT 39.7 % (37.2-46.3); MCH 29.1 pg (27.0-32.0); MCHC 32.7 g/dL (32.0-37.0); MCV 88.8 fL (80.0-97.0); Mean Platelet Volume 11.5 fL (9.5-12.2); NRBC Per 100 WBC 0 /100 WBCS (0.0-0.0); Platelet Count 160 X 10*3/uL (140-440); RBC 4.47 X 10*6/uL (4.10-5.20); RDW 13.1 % (11.5-14.5)
[2022-09-06 18:37] LABS: ALT 13 U/L (8-44); AST 18 U/L (13-35); African American GFR (CKD) 56.5 (60.0-200.0); Albumin 4.3 g/dL (3.8-4.9); Albumin/Globulin Ratio 1.72 (1.60-3.17); Alkaline Phosphatase 84 U/L (41-126); BUN/Creat Ratio 11.45 Ratio (12.00-20.00); Blood Urea Nitrogen 12.6 mg/dL (9.0-27.0); Calcium 9.2 mg/dL (8.7-10.3); Carbon Dioxide 26.3 mmol/L (20.0-27.5); Chloride 104 mmol/L (96-109); Chol/HDL Ratio 2.67 Ratio; Globulin 2.5 g/dL (1.6-3.3); Glucose 88 mg/dL (70-110); LDL Cholesterol,Calculated 81.9 mg/dL (0.0-131.0); Non-African American GFR(CKD) 48.7 (60.0-200.0); Potassium 4.3 mmol/L (3.5-5.5); Sodium 142 mmol/L (135-145); Total Protein 6.8 g/dL (6.2-8.2); VLDL Calculation 15.12 mg/dL (5.00-40.00)
[2022-09-06 18:51] LABS: Vitamin B12 >1800.0 pg/mL (200.0-944.0)
== END | disposition home or self-care (01) ==
LOC: LABWHC1 11:50
PROVIDERS: ATTEND Family Medicine
DX: E78.5 Hyperlipidemia, unspecified (principal); A31.0 Pulmonary mycobacterial infection; E03.9 Hypothyroidism, unspecified; L65.0 Telogen effluvium; E53.8 Deficiency of other specified B group vitamins; E55.9 Vitamin D deficiency, unspecified
CPT/HCPCS: 36415; 80053; 80061; 82306; 82607; 82626; 84403; 84439; 84443; 85027

== ENCOUNTER → 2022-10-24 | Outpatient (CLI) | payer MEDICARE ==
--- NOTE | 2022-10-24 16:59 | BD ---
EXAMINATION TYPE: Axial Bone Density DATE OF EXAM: 10/24/2022 CLINICAL HISTORY: 77 years old Female. ICD-10 CODE: M89.9 DISORDER OF BONE Height: 5 ft 7 in Weight: 112 FRAX RISK QUESTIONS: Alcohol (3 or more units per day): no Family History (Parent hip fracture): yes Glucocorticoids (More than 3mos): no (Ex: prednisone, prednisolone, methylprednisolone, dexamethasone, and hydrocortisone). History of Fracture in Adulthood: yes Secondary Osteoporosis: 1. Type 1 Diabetes: no 2. Hyperthyroidism: no 3. Menopause before 45: yes 4. Malnutrition: no 5. Chronic liver disease: no Rheumatoid Arthritis: no Current Tobacco Use: no RISK FACTORS HISTORY OF: Surgery to Spine/Hip(right/left)/Wrist (right/left): no Family History of Osteoporosis: yes Active: yes Diet low in dairy products/other sources of calcium: no Postmenopausal woman: yes Take estrogen and/or progesterone medications: none now Lost more than 2 inches in height since high school: no Frequent falls: no Poor Health: good Hyperparathyroidism: no Adrenal Insufficiency: no MEDICATIONS: Thyroid Medications: yes Which medication: levothyroxine How Lon years Additional Medications: levothyroxine, propanolol, butal/acetamine, aspirin, Atorvastatin Restasis, S ystane balance, omeprazole, triamcinolone, latanoprost, azithromycin, rifampin, ethambutol Additional History: EXAM MEASUREMENTS: Bone mineral densitometry was performed using the [employer] System. Bone mineral density as measured about the Lumbar spine is: ----- L1-L4(G/cm2): 0.887 T Score Values are as follows: ----- L1: -3.1 ----- L2: -2.8 ----- L3: -2.0 ----- L4: -2.1 ----- L1-L4: -2.4 Z Score Values are as follows: ----- L1: -0.8 ----- L2: -0.6 ----- L3: 0.2 ----- L4: 0.1 ----- L1-L4: -0.2 Bone mineral density has: decreased -8.7 % since study of: 2018 Bone mineral density about the R hip (g/cm2): 0.685 Bone mineral density about the L hip (g/cm2): 0.736 T Score values are as follows: -----R Neck: -2.5 -----L Neck: -2.2 -----R Total: -2.7 -----L Total: -2.4 Z Score values are as follows: -----R Neck: -0.3 -----L Neck: 0.1 -----R Total: -0.2 -----L Total: -0.5 Bone mineral density has: decreased -8.1 % since study of: 2018 FRAX%s: The graph provided illustrates a 38.7% chance for a major osteoporotic fx and a 27.2 % chance for the hips probability for fx in 10 years time. IMPRESSION: Osteoporosis (T Score less than -2.5). There is increased fracture risk and therapy is usually indicated based on age. Re-Screen 1-2 years. NOTE: T-SCORE=SD OF THE YOUNG ADULT MEAN.
== END | disposition home or self-care (01) ==
LOC: RADBDWWP 08:32
PROVIDERS: ATTEND Family Medicine
DX: M81.0 Age-related osteoporosis without current pathological fracture (principal); M85.89 Other specified disorders of bone density and structure, multiple sites; Z78.0 Asymptomatic menopausal state
CPT/HCPCS: 77080

== ENCOUNTER → 2023-06-06 | Outpatient (CLI) | payer MEDICARE ==
--- NOTE | 2023-06-07 10:33 | MM ---
Reason for Exam: Screening (asymptomatic). Last screening mammogram was performed 12 month(s) ago. Patient History: Menarche at age 14. First Full-Term at age 25. Left ovary removed at age 43. Right ovary removed at age 43. Hysterectomy at age 43. Other cancer, age 71. Estrogen for 10 years from age 43 until age 53. Risk Values: Sasha 5 year model risk: 1.6%. NCI Lifetime model risk: 3.0%. Prior Study Comparison: 02/28/2020 Bilateral Screening Mammogram, [facility]. 03/23/2021 Bilateral Diagnostic Mammogram, [facility]. 05/16/2022 Bilateral MG 3D screening mammo w/cad, [facility]. Tissue Density: The breast tissue is heterogeneously dense. This may lower the sensitivity of mammography. Findings: Analyzed By CAD. There is no suspicious group of microcalcifications or new suspicious mass. Overall Assessment: Negative, BI-RAD 1 Management: Screening Mammogram of both breasts in [address] [facility] will attempt to contact patient to return for supplemental views and ultrasound if indicated. Patient should continue monthly self-breast exams. A clinical breast exam by your physician is recommended on an annual basis. This exam should not preclude additional follow-up of suspicious palpable abnormalities. Note on Sasha scores and lifetime risk: 1. A Sasha score greater than 3% is considered moderate risk. If this is the case, consider specialist referral to assess eligibility for a risk reducing agent. 2. If overall lifetime risk for the development of breast cancer is 20% or higher, the patient may qualify for future screening with alternating mammogram and breast MRI. Electronically signed and approved by: Cem Olivarez DO
== END | disposition home or self-care (01) ==
LOC: RADMAMWWP 13:18
PROVIDERS: ATTEND Family Medicine
DX: Z12.31 Encounter for screening mammogram for malignant neoplasm of breast (principal)
CPT/HCPCS: 77063; 77067

== ENCOUNTER 2023-11-14 11:10 | Day surgery (SDC) | payer MEDICARE ==
[2023-11-10 12:26] VITALS: BMI 16.7
[~2023-11-14 11:10] MED LIST changes: -LIDOCAINE 1% 20 ML VIAL (10MG/ML) FOR IV START INTRADERMA PRN
[2023-11-14] MEDS: LACTATED RINGERS 1,000 ML IV ONE (12:10)
[2023-11-14 12:26] VITALS: TEMP 98.3
[2023-11-14] MEDS: LIDOCAINE 1% (10MG/ML) FOR IV START INTRADERMA PRN (12:36)
[2023-11-14] MEDS ORDERED: PROPOFOL 10 MG/ML 20 ML VIAL IV ONE (13:03)
--- NOTE | 2023-11-14 13:19 | P.PCN ---
Date of Procedure: 11/14/23 Procedure(s) Performed: BRIEF HISTORY: Patient is a 78-year-old pleasant white female scheduled for an elective colonoscopy as a part of evaluation of chronic diarrhea for the last 2 months duration. She also has family history of colon cancer diagnosed in her mother at age 70. PROCEDURE PERFORMED: Colonoscopy with random biopsy. PREOPERATIVE DIAGNOSIS: Chronic diarrhea and family history of colon cancer. IV sedation per Anesthesia. PROCEDURE: After informed consent was obtained, the patient, was brought into the endoscopy unit. IV sedation was administered by Anesthesia under continuous monitoring. Digital rectal examination was normal. Initially the Olympus CF-160 flexible video colonoscope was then inserted in the rectum, gradually advanced into the cecum without any difficulty. Careful examination was performed as the scope was gradually being withdrawn. Ileocecal valve and the appendiceal orifice were visualized and appeared normal. Prep was excellent. Mucosa of the cecum, ascending colon, transverse colon, descending colon, sigmoid colon, and rectum appeared normal. Biopsies were done from the ascending and descending colon to microscopic/collagenous colitis. Retroflexion was performed in the rectum and no lesions were seen. The patient tolerated the procedure well. IMPRESSION: Normal-appearing colon from rectum to cecum with no evidence of colorectal neoplasia. RECOMMENDATIONS: Findings of this examination were discussed with the patient as well as her family. She was advised to follow-up with the biopsy results. In the meantime advised to use [id number] Imodium as needed for the chronic diarrhea. Follow-up in the office as needed..
[2023-11-14 13:26] VITALS: RESP 16
[2023-11-14 13:37] VITALS: BP 106/63; PULSE 71
== END 2023-11-14 13:59 | disposition home or self-care (01) ==
LOC: ORWHC2ENDO 11:10
PROVIDERS: ATTEND Internal Medicine Gastroenterology
DX: K52.9 Noninfective gastroenteritis and colitis, unspecified (principal); E78.5 Hyperlipidemia, unspecified; Z85.828 Personal history of other malignant neoplasm of skin; E07.9 Disorder of thyroid, unspecified; H91.90 Unspecified hearing loss, unspecified ear; Z79.890 Hormone replacement therapy; Z79.899 Other long term (current) drug therapy; Z80.0 Family history of malignant neoplasm of digestive organs
CPT/HCPCS: 88305; 45380; J2704

== ENCOUNTER → 2023-11-21 | Outpatient (CLI) | payer MEDICARE ==
[2023-11-21 11:04] LABS: African American GFR (CKD) >90 (>60 ml/min/1.73 sqM); Blood Urea Nitrogen 14 mg/dL (7-17); Non-African American GFR(CKD) >90 (>60 ml/min/1.73 sqM)
--- NOTE | 2023-11-21 13:15 | CT ---
EXAMINATION TYPE: CT chest w con DATE OF EXAM: 11/21/2023 COMPARISON: 07/29/2022 HISTORY: 78-year-old female A31.9 MYCOBACTERIAL INFECTION, UNSPECIFIED TECHNIQUE: Contiguous axial scanning of the chest after the administration of 100 mL of Isovue 300. Coronal/sagittal reconstructions performed. CT DLP: 238 mGycm. Automatic exposure control utilized for a dose reduction. FINDINGS: The size of the pericardial effusion. Proximal LAD coronary artery calcifications. Bovine configuration to the aortic arch. Aorta normal caliber. No thoracic lymphadenopathy with multicentric areas. Previous patchy infiltrate lateral right base and superior segment left lower lobe shows improvement. However, other areas of extensive patchy nodular infiltrate and tree-in-bud opacities throughout the mid and lower lungs is new or increased. Overall, there has been interval worsening. Individual nodu lar areas measure up to 1.4 cm and should be reassessed to ensure clearance. Mild emphysema with biapical pleural-parenchymal scarring. No pleural effusion. Visualized upper abdomen shows a number of hepatic cysts measuring up to 2.0 cm in. Partially visuali zed central cyst of the left kidney measuring at least 5.4 cm. Bones: No osseous destructive process. IMPRESSION: 1. COPD with mild emphysema. 2. Some of previous patchy infiltrate such as within the lateral right base and superior segment left lower lobe shows improvement. However, there are extensive areas of patchy nodular infiltrate and tr ee-in-bud opacities that have developed or worsened throughout the mid and lower lungs. Overall inter scott worsening. Consider ongoing atypical mycobacterial/fungal infection.
== END | disposition home or self-care (01) ==
LOC: RADCTMAIN 10:10
PROVIDERS: ATTEND Internal Medicine Critical Care Medicine
DX: J43.9 Emphysema, unspecified (principal); A31.9 Mycobacterial infection, unspecified; J44.9 Chronic obstructive pulmonary disease, unspecified; R91.8 Other nonspecific abnormal finding of lung field
CPT/HCPCS: 82565; 84520; 71260; 36415; Q9967

== ENCOUNTER 2024-01-22 07:16 | Emergency (ER) | payer MEDICARE ==
[2024-01-22] MEDS ORDERED: KETOROLAC 15 MG/ML 1 ML VIAL ONE (08:06)
--- NOTE | 2024-02-28 07:28 | XR ---
Patient Veronique Flores ID [id number] EXAMINATION TYPE: XR chest 2V DATE OF EXAM: 01/22/2024 COMPARISON: No comparison available during PACS downtime INDICATION: Chest pain TECHNIQUE: Frontal and lateral views of the chest are obtained. FINDINGS: The heart size is normal. The pulmonary vasculature is normal. There are scattered increased lower lung field lung markings. This extends into the right costophreni c angle. On the lateral projection there is increased infiltrate along the major fissure likely withi n the lingula. Correlate for pneumonia. IMPRESSION: 1. Suspected lingular pneumonia. Some bibasilar subsegmental atelectasis may be present extending int o the right costophrenic angle. Follow up exams are recommended.
== END 2024-01-22 10:33 | disposition home or self-care (01) ==
LOC: EC 07:16
DX: R07.9 Chest pain, unspecified (principal)
CPT/HCPCS: 71046; 93005; 99284

== ENCOUNTER → 2024-06-07 | Outpatient (CLI) | payer MEDICARE ==
--- NOTE | 2024-06-13 16:34 | MM ---
Reason for Exam: Screening (asymptomatic). Last screening mammogram was performed 12 month(s) ago. Patient History: Menarche at age 14. First Full-Term at age 25. Left ovary removed at age 43. Right ovary removed at age 43. Hysterectomy at age 43. Other cancer, age 71. Estrogen for 10 years from age 43 until age 53. Risk Values: Sasha 5 year model risk: 1.5%. NCI Lifetime model risk: 2.8%. Prior Study Comparison: 03/23/2021 Bilateral Diagnostic Mammogram, [facility]. 05/16/2022 Bilateral MG 3D screening mammo w/cad, [facility]. 06/06/2023 Bilateral MG 3D screening mammo w/cad, [facility]. Tissue Density: The breasts are heterogeneously dense, which may obscure small masses. Findings: Analyzed By CAD. Areas of asymmetric density in and few scattered benign round calcifications are unchanged. There is no suspicious group of microcalcifications or new suspicious mass in either breast. Overall Assessment: Benign, BI-RAD 2 Management: Screening Mammogram of both breasts in 1 year. . Patient should continue monthly self-breast exams. A clinical breast exam by your physician is recommended on an annual basis. This exam should not preclude additional follow-up of suspicious palpable abnormalities. Note on Sasha scores and lifetime risk: 1. A Sasha score greater than 3% is considered moderate risk. If this is the case, consider specialist referral to assess eligibility for a risk reducing agent. 2. If overall lifetime risk for the development of breast cancer is 20% or higher, the patient may qualify for future screening with alternating mammogram and breast MRI. [facility], , 06/13/2024 4:31 PM. Electronically signed and approved by: Angeles Booker M.D. Radiologist
== END | disposition home or self-care (01) ==
LOC: RADMAMWWP 09:19
PROVIDERS: ATTEND Family Medicine
DX: Z12.31 Encounter for screening mammogram for malignant neoplasm of breast (principal); Z90.721 Acquired absence of ovaries, unilateral; R92.333 Mammographic heterogeneous density, bilateral breasts
CPT/HCPCS: 77063; 77067

== ENCOUNTER → 2024-06-24 | Outpatient (CLI) | payer MEDICARE ==
--- NOTE | 2024-06-24 15:08 | CT ---
EXAMINATION TYPE: CT chest wo con DATE OF EXAM: 06/24/2024 12:17 PM COMPARISON: None. CLINICAL INDICATION: Female, 79 years old with history of A31.0 PULMONARY MYCOBACTERIAL INFECTION, Pu lmonary mycobacterial infection with cough. TECHNIQUE: Axial images were obtained at 5 mm thick sections. Reconstructed images are reviewed on [email or web address] computer in the coronal plane. Contrast used: mL of , (none if empty) Oral contrast used: (none if empty) CT DLP: 108.7 mGycm, Automated exposure control for dose reduction was used. FINDINGS: Portion of the thyroid visualized is normal. Small nodular densities in the posterior lateral superior segment right lobe. This measures 0.4 cm, i mage 26 series 4. There is a 0.6 cm nodular density in the superior segment right lower lobe. Image 2 7. Couple of tiny densities are in the posterior left lung, image 27. There is a nodular density. 0.6 cm. Image 30. There is a 0.8 cm nodule posterior lateral right lung. Image 35. Adjacent spiculated s maller density is present. Multiple nodules are present through the lung bases. Larger nodules includ e a 1.0 cm nodule near the major fissure, image 41 peripheral nodule on the left, image 41 measuring 0.7 cm. Additional smaller nodularities are present in the periphery of the bilateral lung talavera. No enlarged mediastinal or hilar adenopathy evident. The ascending aorta diameter at the level of th e main pulmonary artery is 3.8 cm. The main pulmonary artery diameter at the bifurcation is 2.3 cm. Mild coronary artery calcification is present. Limited CT sections are obtained through the upper abdomen. A cyst is within the superior left lobe l iver measuring 2.0 cm. Large cyst at the superior lateral left kidney. IMPRESSION: 1. Multiple nodularities through the bilateral peripheral lower dependent lung talavera findings have b een mild improvement from the comparison study. New or enlarging nodules are not identified. Findings can be compatible with acute mycobacterial infection. Correlation and continued follow-up recommende d [facility], , 06/24/2024 3:06 PM
== END | disposition home or self-care (01) ==
LOC: RADCTMAIN 11:28
PROVIDERS: ATTEND Internal Medicine Critical Care Medicine
DX: A31.0 Pulmonary mycobacterial infection (principal); R91.8 Other nonspecific abnormal finding of lung field; N28.1 Cyst of kidney, acquired
CPT/HCPCS: 71250

== ENCOUNTER → 2024-10-25 | Outpatient (CLI) | payer MEDICARE ==
[2024-10-25 12:59] LABS: African American GFR (CKD) >90 (>60 ml/min/1.73 sqM); Blood Urea Nitrogen 23 mg/dL (7-17); Non-African American GFR(CKD) 84 (>60 ml/min/1.73 sqM)
--- NOTE | 2024-10-25 15:53 | CT ---
EXAMINATION TYPE: CT angio head neck CT DLP: 1311.2 mGycm, Automated exposure control for dose reduction was used. DATE OF EXAM: 10/25/2024 3:06 PM COMPARISON: None. CLINICAL INDICATION:Female, 79 years old with history of G43.909 MIGRAINE, UNSP, NOT INTRACTABLE, WIT HOUT S; PHH, Migraines since the age of 14. Previous known small brain bleed TECHNIQUE: Axially acquired helical CT angiogram of the head and neck was obtained with contrast util izing 75 cc of Isovue-370 administered intravenously. Noncontrast imaging of the head was performed w ith administration of intravenous contrast. Axial images are supplemented with 3D reconstructions whi ch were post-processed at an independent workstation. NASCET criteria used. MIP imaging performed on a separate workstation and submitted for review. FINDINGS: CTA HEAD: No evidence of acute intracranial hemorrhage, mass effect, or midline shift. The ventricles, sulci, a nd cisterns are unremarkable. The visualized portions of the internal carotid arteries, middle cerebral arteries, anterior cerebral arteries, and posterior cerebral arteries are patent. origin of the right [employer]. The basilar and vertebral arteries are patent. CTA NECK: Right Carotid System: The common carotid artery and external carotid artery are patent. The carotid bifurcation demonstrate s no evidence of hemodynamically significant stenosis. The remaining portions of the internal carotid artery demonstrate normal size without significant narrowing. Left Carotid System: The common carotid artery and external carotid artery are patent. The carotid bifurcation demonstrate s no evidence of hemodynamically significant stenosis. The remaining portions of the internal carotid artery demonstrate normal size without significant narrowing. Vertebral arteries are patent without evidence hemodynamically significant stenosis. There is a three-vessel aortic arch. The origins of the great vessels are patent. No evidence of hemo dynamically significant stenosis. Bilateral aphakia. Bilateral periventricular scattered hypoattenuating regions likely relate to chron ic small vessel ischemic disease. Mild mucosal thickening of the ethmoid sinuses with moderate mucosa l thickening of the bilateral sphenoid sinuses. Biapical pleural parenchymal scarring. Mild centrilobular emphysematous changes. Right thyroid lobe i s surgically absent. IMPRESSION: 1. No evidence of dissection of the cervical internal carotid arteries or vertebral arteries or any e vidence of significant stenosis at the carotid bifurcations. 2. No evidence of high-grade stenosis or intracranial aneurysm. [facility], , 10/25/2024 3:51 PM
== END | disposition home or self-care (01) ==
LOC: RADCTMAIN 12:22
PROVIDERS: ATTEND Psychiatry & Neurology Neurology
DX: Z13.89 Encounter for screening for other disorder (principal); G43.909 Migraine, unspecified, not intractable, without status migrainosus
CPT/HCPCS: 82565; 84520; 70496; 70498; 36415; Q9967

== ENCOUNTER → 2024-11-11 | Outpatient (CLI) | payer MEDICARE ==
--- NOTE | 2024-11-11 10:42 | BD ---
EXAMINATION TYPE: Axial Bone Density DATE OF EXAM: 11/11/2024 CLINICAL HISTORY: 79 years old Female. ICD-10 CODE: M81.0 AGE-RELATED OSTEOPOROSIS W/O CURRENT PATHO LO , Additional History: Height: 5 ft 6 1/2 in Weight: 113 FRAX RISK QUESTIONS: Alcohol (3 or more units per day): no Family History (Parent hip fracture): yes Glucocorticoids (More than 3mos): no (Ex: prednisone, prednisolone, methylprednisolone, dexamethasone, and hydrocortisone). History of Fracture in Adulthood: yes Secondary Osteoporosis: 1. Type 1 Diabetes: no 2. Hyperthyroidism: half removed 3. Menopause before 45: yes 4. Malnutrition: no 5. Chronic liver disease: no Rheumatoid Arthritis: no Current Tobacco Use: no RISK FACTORS HISTORY OF: Surgery to Spine/Hip(right/left)/Wrist (right/left): no MEDICATIONS: Thyroid Medications: yes Which medication: levothyroxine How Lon Osteoporosis Medications: none EXAM MEASUREMENTS: Bone mineral densitometry was performed using the [employer] System. Bone mineral density as measured about the Lumbar spine is: ----- L1-L4(G/cm2): 0.923 T Score Values are as follows: ----- L1: -3.0 ----- L2: -2.6 ----- L3: -1.8 ----- L4: -1.6 ----- L1-L4: -2.1 Z Score Values are as follows: ----- L1: -0.7 ----- L2: -0.3 ----- L3: 0.5 ----- L4: 0.6 ----- L1-L4: 0.1 Bone mineral density has: increased 4.1 % since study of: 2022 Bone mineral density about the R hip (g/cm2): 0.696 Bone mineral density about the L hip (g/cm2): 0.714 T Score values are as follows: -----R Neck: -2.5 -----L Neck: -2.3 -----R Total: -2.7 -----L Total: -2.7 Z Score values are as follows: -----R Neck: -0.1 -----L Neck: 0.0 -----R Total: -0.5 -----L Total: -0.4 Bone mineral density has: decreased -2.9 % since study of: 2022 FRAX%s: The graph provided illustrates a 38.3 % chance for a major osteoporotic fx and a 26.9 % chanc e for the hips probability for fx in 10 years time. IMPRESSION: Osteoporosis (T Score less than -2.5). There is increased fracture risk and therapy is usually indicated based on age. Re-Screen 1-2 years. NOTE: T-SCORE=SD OF THE YOUNG ADULT MEAN. [facility], , 11/11/2024 10:40 AM
== END | disposition home or self-care (01) ==
LOC: RADBDWWP 08:30
PROVIDERS: ATTEND Family Medicine
DX: M81.0 Age-related osteoporosis without current pathological fracture (principal); Z78.0 Asymptomatic menopausal state
CPT/HCPCS: 77080